=== PATIENT | male | born 1965 | race Caucasian/White ===

== ENCOUNTER 2019-01-16 00:50 | Inpatient (IN) | payer OTHER ==
[2019-01-16] VITALS (7 sets, daily range): BP systolic 111–156; BP diastolic 68–104
[~2019-01-16] VITALS: Ht 185.4 cm; Wt 93.5 kg
--- NOTE | 2019-01-16 00:55 | NUR ---
PT BIBRA complaining of SOB, pt saturating in 80s. Pt signed out AMA on Sun from [facility] after being diagnosed with PNA. Pt is tachypnic and has dyspnea. Pt speaking in full sentences. Pt put on the monitor and pulse ox. Er MD at bedside.
[2019-01-16] MEDS ORDERED: IPRATROPIUM NEB FS 0.5 MG/2.5 ML AMPUL.NEB ONE (00:59)
[2019-01-16] MEDS ORDERED: ALBUTEROL FS 2.5 MG/3 ML VIAL.NEB ONE (00:59)
[2019-01-16] MEDS ORDERED: ALBUTEROL FS 2.5 MG/3 ML VIAL.NEB CONTNEB ONE (01:00)
[2019-01-16] MEDS ORDERED: AZTREONAM 1 G in IV NS 0.9% 100 ML IV ONE (01:00)
[2019-01-16] MEDS ORDERED: LEVOFLOXACIN 750 MG /D5W 150ML 150 ML IV ONE ×2 (01:00→02:32)
[2019-01-16] MEDS ORDERED: IPRATROPIUM NEB FS 0.5 MG/2.5 ML AMPUL.NEB NEB ONE (01:00)
--- NOTE | 2019-01-16 01:00 | NUR ---
Sagger Soak at bedside for lab draw. Labs sent.
--- NOTE | 2019-01-16 01:10 | NUR ---
XRAY AT BEDSIDE.
[2019-01-16 01:13] LABS: BASOPHILS # (AUTO) 0.1 /CMM (0.0-0.2); BASOPHILS % (AUTO) 0.3 % (0.0-2.0); EOSINOPHILS % (AUTO) 0.6 % (0.0-6.0); HEMATOCRIT 39 % (39-51); HEMOGLOBIN 13.3 g/dL (13.5-17.5); LYMPHOCYTES # (AUTO) 2.2 /CMM (0.8-4.8); LYMPHOCYTES % (AUTO) 7.3 % (20.0-44.0); MEAN CORPUSCULAR HGB CONC 34 g/dl (31.0-36.0); MEAN CORPUSCULAR VOLUME 94 fL (80-96); MONOCYTES # (AUTO) 3.8 /CMM (0.1-1.30); MONOCYTES % (AUTO) 12.3 % (2.0-12.0); NEUTROPHILS # (AUTO) 24.5 /CMM (1.8-8.9); NEUTROPHILS % (AUTO) 79.5 % (43.0-81.0); PLATELET COUNT (AUTO) 770 /CMM (150-450); RED BLOOD CELL COUNT(AUTO) 4.15 MIL/uL (4.5-6.0)
[2019-01-16] MEDS ORDERED: AZTREONAM 1 G VIAL ONE ×2 (01:13→05:26)
[2019-01-16 01:19] LABS: WHITE BLOOD COUNT (AUTO) 30.8 K/uL (4.3-11.0)
[2019-01-16 01:22] LABS: CALCIUM, SERUM 8.3 mg/dL (8.5-10.1); CARBON DIOXIDE 30 mmol/L (21-32); CHLORIDE 100 mmol/L (98-107); CREATININE 0.8 mg/dL (0.6-1.3); GLUCOSE 114 mg/dL (74-106); POTASSIUM 3.4 mmol/L (3.5-5.1); SODIUM SERUM 136 mmol/L (136-145); UREA NITROGEN, BLOOD 13 mg/dL (7-18)
[2019-01-16 01:30] LABS: MONOCYTES % (MANUAL) 11 % (0-11.0)
[2019-01-16 01:31] LABS: EOSINOPHILS % (MANUAL) 1 % (0-4); LYMPHOCYTES % (MANUAL) 7 % (16-48)
[2019-01-16 01:37] LABS: B-TYPE NATRIURETIC PEPTIDE 370 PG/ML (0-125)
[2019-01-16] MEDS ORDERED: ONDANSETRON HCL/PF 4 MG/2 ML VIAL IVP PRN (02:00)
[2019-01-16] MEDS ORDERED: MAG HYDROX/AL HYDROX/SIMETH 30 ML UDC PO PRN (02:00)
[2019-01-16] MEDS ORDERED: ACETAMINOPHEN 325 MG TABLET PO PRN (02:00)
[2019-01-16] MEDS ORDERED: MAGNESIUM HYDROXIDE 30 ML UDC PO PRN (02:00)
--- NOTE | 2019-01-16 02:29 | NUR ---
Pt being monitored, pulse ox 96% on 2LPM via n/c. Pt tachycardic. ER aware.
[2019-01-16 02:54] LABS: NEUTROPHILS % (MANUAL) 81 (42-76)
--- NOTE | 2019-01-16 02:57 | NUR ---
Report given to RHIANNA Ceballos RN for BELLE.
--- NOTE | 2019-01-16 03:30 | NUR ---
CROCLINICAL BIOCHEMICAL GENETICIST NOTES Patient came to unit via gurney, alert, oriented x 4. On O2 at 4LPM via NC. Patient reports SOB on exertion. Patient able to walk from [facility] to bed, knee brace noted on R leg. Tele monitor in place, sinus tachy 115. No complaints of pain as of this time. Peripheral IV on LFA g#20 infusing at 75mL/hr. Skin assessment done; bruise on R and L arm noted. As per patient, it is from IV insertion when he was in [facility]. Old surgical scar noted on the L upper arm and bilateral lower extremity noted. Pictures taken and attached to chart. Oriented to use of call stockton, placed within easy reach. Bed in low, locked position. Will continue to monitor accordingly.
[2019-01-16] MEDS: IV NS 0.9% 1,000 ML IV PRN ×2 (04:13→16:17)
[2019-01-16] MEDS: HYDROCODONE/APAP 5/325MG 1 EACH TABLET PO PRN ×4 (04:56→18:44)
[2019-01-16] MEDS: AZTREONAM 1 G in IV NS 0.9% 100 ML IV SCH ×3 (05:50→21:16)
--- NOTE | 2019-01-16 05:50 | NUR ---
BIOLOGICAL INSPECTOR NOTES Called pharmacy to clarify azactam 1g IV which was given at the ED at 01:25hrs to give it at 05:00 according to schedule. Pharmacist Moris said to give it as scheduled.
--- NOTE | 2019-01-16 06:50 | NUR ---
HOUSEFELLOW CLOSING NOTES Patient still sleeping in bed, easily arousable. Breathing even and unlabored. Not in any distress. No complaints as of this time. Peripheral IV on LFA g#20 infusing at 75mL/hr. On O2 at 2LPM via NC saturating well. Tele monitor in place, sinus tachy 108. All needs attended to. All due medications given as ordered. Will endorse continuity of care to oncoming RN.
[2019-01-16] MEDS ORDERED: POTASSIUM CHLORIDE 20 MEQ TAB.PRT.SR PO SCH ×2 (10:00→12:30)
--- NOTE | 2019-01-16 11:20 | NUR ---
TELE/RN NOTE THE PATIENT COMPLAINS OF CHEST PAIN 5/10 RADIATING TO UPPER BACK AND STATES NECK FEELS NUMB. STAT ECG ORDER.
--- NOTE | 2019-01-16 12:19 | NUR ---
MS/RN NOTE POTASSIUM DUE AT 1000 NOT ADMINISTERED DUE NOT ABLE TO PULL OUT THE MEDICATION AFTER 1000. PHARMACY IS MADE AWARE.
[2019-01-16] MEDS: ALBUTEROL FS 2.5 MG/0.5 ML VIAL.NEB NEB SCH ×3 (15:49→23:54)
[2019-01-16] MEDS: IPRATROPIUM NEB FS 0.5 MG/2.5 ML AMPUL.NEB NEB SCH ×3 (15:49→23:54)
[2019-01-16] MEDS: KETOROLAC TROMETHAMINE INJ 30 MG/ML VIAL IV PRN (16:11)
--- NOTE | 2019-01-16 19:04 | NUR ---
MS/RN NOTE THE PATIENT ALERT AND ORIENTED X4. PATIENT IS RECEIVING OXYGEN 3L/MIN VIA NC AND SATURATION IS AT 94%. DENIES SOB. DENIES PAIN AT THIS TIME. LFA G 20 PATENT AND NORMAL SALINE INFUSING AT 75ML/HR AND NO S/S INFILTRATION NOTED. GOOD AND GENTLE SKIN CARE PROVIDED. BED LOW AND LOCKED. SIDE RAILS UP X2. CALL LIGHT WITHIN REACH. WILL ENDORSE TO HEAT AND FROST INSULATOR.
--- NOTE | 2019-01-16 19:30 | NUR ---
RN Notes Received patient asleep, on high fowlers position, with O2 inhalation at 3LPM via nasal cannula and tolerated well. No signs of distress and discomfort noted. Breathing regular and unlabored. IV access on left forearm patent and intact with ongoing IVF infusing well. Safety measures and fall precaution observed with call light within reach. Will continue to monitor patient.
[2019-01-17] MEDS: LEVOFLOXACIN 750 MG /D5W 150ML 750 MG in PREMIX 1 EA IV SCH (01:58)
[2019-01-17] MEDS: HYDROCODONE/APAP 5/325MG 1 EACH TABLET PO PRN ×3 (01:59→18:38)
--- NOTE | 2019-01-17 01:59 | NUR ---
RN Notes Patient complains of pain on her upper chest especially when coughing. Garfield 5/325 mg tab given PO and tolerated well.
[2019-01-17] MEDS: IPRATROPIUM NEB FS 0.5 MG/2.5 ML AMPUL.NEB NEB SCH ×6 (03:55→22:56)
[2019-01-17] MEDS: ALBUTEROL FS 2.5 MG/0.5 ML VIAL.NEB NEB SCH ×6 (03:56→22:56)
[2019-01-17] MEDS: AZTREONAM 1 G in IV NS 0.9% 100 ML IV SCH ×3 (04:56→20:34)
--- NOTE | 2019-01-17 05:31 | NUR ---
RN Notes Patient slept well overnight, vital signs stable, afebrile. Current diet tolerated well, denies nausea and vomiting. Pt complains of pain in the upper chest when coughing. Denies SOB, breathing regular and unlabored. Voiding well with tea colored urine. Ambulatory with steady gait. All needs attended. Will continue to monitor patient.
[2019-01-17 06:42] LABS: BASOPHILS # (AUTO) 0.2 /CMM (0.0-0.2); BASOPHILS % (AUTO) 0.6 % (0.0-2.0); EOSINOPHILS % (AUTO) 0.2 % (0.0-6.0); HEMATOCRIT 38 % (39-51); HEMOGLOBIN 12.8 g/dL (13.5-17.5); LYMPHOCYTES # (AUTO) 1.4 /CMM (0.8-4.8); LYMPHOCYTES % (AUTO) 4.8 % (20.0-44.0); MEAN CORPUSCULAR HGB CONC 34 g/dl (31.0-36.0); MEAN CORPUSCULAR VOLUME 94 fL (80-96); MONOCYTES % (AUTO) 13.5 % (2.0-12.0); NEUTROPHILS # (AUTO) 23.9 /CMM (1.8-8.9); NEUTROPHILS % (AUTO) 80.9 % (43.0-81.0); PLATELET COUNT (AUTO) 664 /CMM (150-450); RED BLOOD CELL COUNT(AUTO) 4.05 MIL/uL (4.5-6.0); WHITE BLOOD COUNT (AUTO) 29.5 K/uL (4.3-11.0)
[2019-01-17 06:56] LABS: CALCIUM, SERUM 8.3 mg/dL (8.5-10.1); CREATININE 0.8 mg/dL (0.6-1.3); PHOSPHORUS 4.2 mg/dL (2.5-4.9)
--- NOTE | 2019-01-17 07:15 | NUR ---
MS/RN NOTE THE PATIENT ALERT AND ORIENTED X4. DENIES PAIN AT THIS TIME. RECEIVING OXYGEN 3L/MIN VIA NASAL CANNULA AND DENIES SOB. LFA G 20 PATENT AND NORMAL SALINE INFUSING AT 75ML/HR. NO S/S INFILTRATION NOTED. BED LOW AND LOCKED. SIDE RAILS UP X2. CALL LIGHT WITHIN REACH. WILL CONTINUE TO MONITOR.
[2019-01-17] MEDS: KETOROLAC TROMETHAMINE INJ 30 MG/ML VIAL IV PRN (07:57)
[2019-01-17 08:00] VITALS: BP 142/91
[2019-01-17] MEDS: IV NS 0.9% 1,000 ML IV PRN (10:11)
[2019-01-17] MEDS: MENTHOL/CETYLPYRD (CEPACOL) 1 LOZ LOZENGE PO PRN ×2 (13:11→20:33)
[2019-01-17 14:30] VITALS: BP 145/88
[2019-01-17 16:00] VITALS: BP 179/103
--- NOTE | 2019-01-17 16:23 | NUR ---
MS/RN NOTE DR TOBIAS IS MADE AWARE OF PATIENT HAVING TEA COLORED URINE. NEW ORDER FOR UA AND URINE CULTURE IS OBTAINED. THE ORDER IS READ BACK, VERIFIED. NOTED AND CARRIED OUT.
--- NOTE | 2019-01-17 18:11 | NUR ---
MS/RN NOTE THE PATIENT ALERT AND ORIENTED X4. RECEIVING OXYGEN AT 3L/MIN VIA NASAL CANNULA AND SATURATION IS AT 96%. DENIES SOB. RESPIRATION REGULAR AND UNLABORED. DENIES PAIN AT THIS TIME. LFA G 20 PATENT AND NORMAL SALINE INFUSING AT 75ML/HR. NO S/S INFILTRATION NOTED. BED LOW AND LOCKED. SIDE RAILS UP S3. CALL LIGHT WITHIN REACH. WILL CONTINUE TO MONITOR.
[2019-01-17 18:17] VITALS: BP 166/101
--- NOTE | 2019-01-17 18:20 | NUR ---
MS/RN NOTE DR TOBIAS IS MADE AWARE OF PATIENT BLOOD PRESSURE OF 161/101 AND PULSE 125. NEW ORDER FOR HYDRALAZINE 25 MG PO Q6H PRN IS OBTAINED. READ BACK, VERFIED. NOTED AND CARRIED OUT.
[2019-01-17] MEDS: hydrALAZINE HCL 25 MG TABLET PO PRN (18:38)
[2019-01-17 20:00] VITALS: BP 148/84
--- NOTE | 2019-01-17 20:00 | NUR ---
MS RN NOTES RECEIVED PATIENT ASLEEP IN BED. NO DISTRESS NOTED. CALL LIGHT WITHIN REACH. NO C/O PAIN DISCOMFORT. BP 148/84 HR 140. NO C/O OF DIZZINESS, MONTOYA, NV NOTED. PERIPHERAL LINE INTACT AND PATENT. BED IN LOW LOCK SETTING. ROOM FREE OF CLUTTER AND BELONGINGS KEPT NEAR BEDSIDE. WILL CONTINUE TO MONITOR.
[2019-01-18] MEDS: LEVOFLOXACIN 750 MG /D5W 150ML 750 MG in PREMIX 1 EA IV SCH (01:02)
[2019-01-18] MEDS: HYDROCODONE/APAP 5/325MG 1 EACH TABLET PO PRN ×2 (01:28→08:03)
[2019-01-18] MEDS: ALBUTEROL FS 2.5 MG/0.5 ML VIAL.NEB NEB SCH ×2 (03:29→08:21)
[2019-01-18] MEDS: IPRATROPIUM NEB FS 0.5 MG/2.5 ML AMPUL.NEB NEB SCH ×5 (03:29→20:18)
[2019-01-18] MEDS: IV NS 0.9% 1,000 ML IV PRN ×2 (03:33→21:38)
[2019-01-18] MEDS: KETOROLAC TROMETHAMINE INJ 30 MG/ML VIAL IV PRN ×3 (03:51→21:15)
[2019-01-18] MEDS: AZTREONAM 1 G in IV NS 0.9% 100 ML IV SCH ×2 (05:47→13:29)
[2019-01-18 06:34] LABS: APPEARANCE,URINE SL CLOUDY (CLEAR); BILIRUBIN,URINE 1+ (NEGATIVE); BLOOD, URINE 3+ Ery/uL (NEGATIVE); COLOR,URINE DARK YELLO (YELLOW); KETONES,URINE NEGATIVE (NEGATIVE); LEUKOCYTE ESTERASE ,URINE NEGATIVE (NEGATIVE); NITRITE, URINE NEGATIVE (NEGATIVE); PH,URINE 6.5 (5.0-8.0); PROTEIN,URINE 2+ mg/dl (NEGATIVE); UGLUCOSE NEGATIVE (NEGATIVE)
--- NOTE | 2019-01-18 06:47 | NUR ---
MS RN NOTES PATIENT ASLEEP IN BED WITH NO DISTRESS NOTED. CALL LIGHT WITHIN REACH. ALL DUE MEDS GIVEN ORDERED WITH NO ASE NOTED. PERIPHERAL LINE INTACT AND PATENT. NO C/O PAIN OR DISCOMFORT. BED IN LOW LOCK SETTING. ROOM FREE OF CLUTTER AND BELONGINGS KEPT NEAR BEDSIDE. WILL CONTINUE TO MONITOR.
[2019-01-18 07:04] LABS: BACTERIA,URINE None seen /HPF (None Seen); RBC,URINE TOO NUMEROUS TO COUN /HPF (0-2); SQUAMOUS EPITHELIAL CELL,UR Few /HPF (None Seen); WBC,URINE 0-2 /HPF (0-3)
[2019-01-18 07:21] LABS: BASOPHILS # (AUTO) 0.1 /CMM (0.0-0.2); BASOPHILS % (AUTO) 0.2 % (0.0-2.0); EOSINOPHILS % (AUTO) 0.5 % (0.0-6.0); HEMATOCRIT 37 % (39-51); HEMOGLOBIN 12.2 g/dL (13.5-17.5); LYMPHOCYTES # (AUTO) 1.2 /CMM (0.8-4.8); LYMPHOCYTES % (AUTO) 5.5 % (20.0-44.0); MEAN CORPUSCULAR HGB CONC 33 g/dl (31.0-36.0); MEAN CORPUSCULAR VOLUME 95 fL (80-96); MONOCYTES # (AUTO) 3.9 /CMM (0.1-1.30); MONOCYTES % (AUTO) 17.9 % (2.0-12.0); NEUTROPHILS # (AUTO) 16.7 /CMM (1.8-8.9); NEUTROPHILS % (AUTO) 75.9 % (43.0-81.0); PLATELET COUNT (AUTO) 634 /CMM (150-450); RED BLOOD CELL COUNT(AUTO) 3.89 MIL/uL (4.5-6.0); WHITE BLOOD COUNT (AUTO) 22.1 K/uL (4.3-11.0)
[2019-01-18 07:33] LABS: CALCIUM, SERUM 8.3 mg/dL (8.5-10.1); CREATININE 0.8 mg/dL (0.6-1.3); MAGNESIUM 1.6 mg/dL (1.8-2.4); PHOSPHORUS 4.5 mg/dL (2.5-4.9); POTASSIUM 3.9 mmol/L (3.5-5.1)
--- NOTE | 2019-01-18 07:36 | NUR ---
MS/RN OPENING NOTE PATIENT IN BED IN STABLE CONDITION. A/O X 4. NO SIGNS OF ACUTE DISTRESS. COMPLAIN OF PAIN RATED 5/10 AROUND THROAT AREA DUE TO COUGHING PER PATIENT. WILL ADMINISTER PAIN MEDS NEEDED AND PER ORDER. ALL NEEDS ATTENDED TO. CALL LIGHT WITHIN REACH. WILL CONTINUE TO MONITOR TO ENSURE SAFETY.
[2019-01-18 08:00] VITALS: BP 175/100
[2019-01-18] MEDS: hydrALAZINE HCL 25 MG TABLET PO PRN (08:02)
[2019-01-18] MEDS: MENTHOL/CETYLPYRD (CEPACOL) 1 LOZ LOZENGE PO PRN ×2 (08:05→14:38)
[2019-01-18] MEDS: METOPROLOL TARTRATE 25 MG TABLET PO SCH ×2 (09:30→20:18)
--- NOTE | 2019-01-18 09:45 | NUR ---
MS/RN 930AM METOPROLOL 25MG HELD SECONDARY TO PATIENT BP S/P HYDRALAZINE 25MG PO NOTED 132/74, HR 108. DR TOBIAS AT BEDSIDE NOTIFIED AND PER DR TOBIAS HOLD OFF METOPROLOL FOR RIGHT NOW. PATIENT AWARE.
[2019-01-18] MEDS ORDERED: Magnesium 1GM/D5W 100ML PREMIX 100 ML IV SCH (13:30)
[2019-01-18] MEDS ORDERED: CT SWABBABLE VALVE TRANS SET 1 EA INFUS.SET MC ONE (13:51)
[2019-01-18] MEDS ORDERED: IOHEXOL-350 100 ML VIAL IV ONE (13:51)
[2019-01-18] MEDS ORDERED: IV NS 0.9% 250 ML IV ONE (13:51)
[2019-01-18] MEDS ORDERED: [UNRECOGNIZED DRUG - OTHER] MC ONE (14:25)
[2019-01-18] MEDS: ALBUTEROL FS 2.5 MG/3 ML VIAL.NEB NEB SCH ×2 (14:29→20:18)
[2019-01-18] MEDS: Magnesium 1GM/D5W 100ML PREMIX 100 ML IV SCH ×2 (15:59→17:06)
[2019-01-18 16:00] VITALS: BP 145/96
[2019-01-18] MEDS ORDERED: [UNRECOGNIZED DRUG - OTHER] IV SCH (16:00)
[2019-01-18] MEDS ORDERED: VANCOMYCIN 1.25 GM in IV D5W 250 ML IV SCH (16:00)
[2019-01-18] MEDS ORDERED: VANCOMYCIN IV SCH (16:00)
--- NOTE | 2019-01-18 18:17 | NUR ---
MS/RN CLOSING NOTE PATIENT IN BED IN STABLE CONDITION. A/O X 4. NO SIGNS OF ACUTE DISTRESS. NO COMPLAIN OF PAIN OR DISCOMFORT. ON CONTACT ISOLATION FOR MRSA SPUTUM POSITIVE. ALL NEEDS ATTENDED TO. CALL LIGHT WITHIN REACH. WILL ENDORSE TO NEXT SHIFT FOR CONTINUITY OF CARE.
[2019-01-18 20:00] VITALS: BP 157/86
--- NOTE | 2019-01-18 20:00 | NUR ---
MS RN NOTES RECEIVED PATIENT AWAKE IN BED WITH NO DISTRESS NOTED. PATIENT BREATHING EASILY WITH NO SOB NOTES. CALL LIGHT WITHIN REACH. NO C/O PAIN OR DISCOMFORT. PERIPHERAL LINE INTACT AND PATENT. BED IN LOW LOCK SETTING. ALL BELONGINGS KEPT NEAR BEDSIDE. WILL CONTINUE TO MONITOR.
[2019-01-19] MEDS: TEMAZEPAM 15 MG CAPSULE PO PRN (00:10)
[2019-01-19] MEDS: IPRATROPIUM NEB FS 0.5 MG/2.5 ML AMPUL.NEB NEB SCH ×7 (00:18→23:36)
[2019-01-19] MEDS: ALBUTEROL FS 2.5 MG/3 ML VIAL.NEB NEB SCH ×6 (00:56→19:51)
[2019-01-19] MEDS: LEVOFLOXACIN 750 MG /D5W 150ML 750 MG in PREMIX 1 EA IV SCH (02:07)
[2019-01-19] MEDS ORDERED: VANCOMYCIN IV SCH (04:00)
[2019-01-19] MEDS ORDERED: [UNRECOGNIZED DRUG - OTHER] IV SCH (04:00)
[2019-01-19] MEDS: MENTHOL/CETYLPYRD (CEPACOL) 1 LOZ LOZENGE PO PRN ×2 (05:57→19:59)
--- NOTE | 2019-01-19 06:47 | NUR ---
MS RN NOTES PATIENT ASLEEP IN BED. NO DISTRESS NOTED. CALL LIGHT WITHIN REACH. ALL DUE MEDS GIVEN ORDERED WITH NO ASE NOTED. NO FURTHER C/O PAIN OR DISCOMFORT. PERIPHERAL LINE INTACT AND PATENT. BED IN LOW LOCK SETTING. ALL BELONGINGS KEPT NEAR BEDSIDE. WILL ENDORSE TO ONCOMING SHIFT.
[2019-01-19 07:44] LABS: BASOPHILS # (AUTO) 0.1 /CMM (0.0-0.2); BASOPHILS % (AUTO) 0.5 % (0.0-2.0); EOSINOPHILS % (AUTO) 0.8 % (0.0-6.0); HEMATOCRIT 35 % (39-51); HEMOGLOBIN 11.7 g/dL (13.5-17.5); LYMPHOCYTES # (AUTO) 0.9 /CMM (0.8-4.8); LYMPHOCYTES % (AUTO) 4.9 % (20.0-44.0); MEAN CORPUSCULAR HGB CONC 33 g/dl (31.0-36.0); MEAN CORPUSCULAR VOLUME 95 fL (80-96); MONOCYTES % (AUTO) 15.5 % (2.0-12.0); NEUTROPHILS % (AUTO) 78.3 % (43.0-81.0); PLATELET COUNT (AUTO) 642 /CMM (150-450); WHITE BLOOD COUNT (AUTO) 19.1 K/uL (4.3-11.0)
[2019-01-19 07:56] LABS: CALCIUM, SERUM 7.9 mg/dL (8.5-10.1); CREATININE 0.8 mg/dL (0.6-1.3); MAGNESIUM 1.9 mg/dL (1.8-2.4); PHOSPHORUS 3.2 mg/dL (2.5-4.9); POTASSIUM 3.7 mmol/L (3.5-5.1)
[2019-01-19 07:58] VITALS: BP 164/100
[2019-01-19 08:00] VITALS: BP 164/100
--- NOTE | 2019-01-19 08:00 | NUR ---
RN NOTES RECEIVED PATIENT IN THE BED A/O X3, EASILY GET IRRITABLE, ANXIOUS BECAUSE OF PAIN UPPER CHEST WHEN COUGHING, AND HARD TO BREATH. PATIENT ON O2- 4L NC, SCHEDULED MEDICATION ADMINISTERED. PATIENT COMPLAINING OF CHEST PAIN 6/10 PER PAIN SCALE. PATIENT USING URINAL. INFUSING NS AT LEFT FA 75 ML/HR INTACT. PATIENT TRYING TO SLEEP. PATIENT HAS MRSA OF SPUTUM, NEEDS ATTENDED AND ANTICIPATED, CALL LIGHT WITHIN TO REACH. SAFETY PRECAUTION MAINTAINED ALL THE TIME.
--- NOTE | 2019-01-19 08:19 | NUR ---
albuterol not given due HR > 120 bpm Addendum: 01/19/19 at 0819 by WALLACE PLATT RT Amended: Links added.
[2019-01-19] MEDS: METOPROLOL TARTRATE 25 MG TABLET PO SCH ×2 (09:02→21:18)
[2019-01-19] MEDS: HYDROCODONE/APAP 5/325MG 1 EACH TABLET PO PRN ×3 (09:04→20:00)
--- NOTE | 2019-01-19 09:04 | NUR ---
RN NOTES ADMINISTERED NARCO 5/325 MG PO PRN FOR UPPER CHEST PAIN 05/05 PER PATIENT REQUEST, V/S TAKEN BP 164/100, P-100, CONTINUED MONITORING.
[2019-01-19] MEDS ORDERED: MEROPENEM 1 G in IV NS 0.9% 100 ML IV SCH ×2 (10:00→21:00)
[2019-01-19] MEDS ORDERED: MEROPENEM 1 G in IV NS 0.9% 100 ML IV ONE (12:00)
[2019-01-19] MEDS: IV NS 0.9% 1,000 ML IV PRN (12:28)
--- NOTE | 2019-01-19 13:15 | NUR ---
RN NOTES ADMINISTERED NARCO 5/325 MG PO PRN FOR ACUTE UPPER CHEST PAIN 05/05 PER PATIENT REQUEST, V/S TAKEN BP-142/89, P-96. CONTINUED MONITORING.
[2019-01-19 13:28] VITALS: BP 142/89
[2019-01-19 16:00] VITALS: BP 144/87
--- NOTE | 2019-01-19 18:30 | NUR ---
RN NOTES PATIENT STABLE, NO ACUTE RESPIRATORY DISTRESS, V/S STABLE, PATIENT USING URINAL, INFUSING NS AT 75 ML IN LEFT FA INTACT. CALL LIGHT WITHIN TO REACH, SAFETY PRECAUTION MAINTAINED ALL THE TIME.
--- NOTE | 2019-01-19 19:30 | NUR ---
RECEIVED PATIENT IN BED AWAKE, AO X 3, ABLE TO MAKE NEEDS KNOWN. NO ACUTE DISTRESS NOTED. MONITORED FOR PAIN. IV SITES PATENT, INTACT; FLUSHED. SAFETY REMINDERS GIVEN. CONTACT ISOLATION FOR MRSA IN SPUTUM MAINTAINED. ON LOW BED WITH BILATERAL UPPER SIDE RAILS UP. CALL BEVERLY WITHIN EASY REACH. WILL CONTINUE TO MONITOR.
[2019-01-19 20:00] VITALS: BP 163/90
[2019-01-19] MEDS: CLINDAMYCIN 900 MG in IV D5W 50 ML IV SCH (21:19)
[2019-01-20] MEDS: TEMAZEPAM 15 MG CAPSULE PO PRN (01:14)
[2019-01-20] MEDS: ALBUTEROL FS 2.5 MG/3 ML VIAL.NEB NEB SCH ×4 (01:15→20:31)
[2019-01-20] MEDS: HYDROCODONE/APAP 5/325MG 1 EACH TABLET PO PRN ×3 (01:54→20:38)
[2019-01-20] MEDS: IPRATROPIUM NEB FS 0.5 MG/2.5 ML AMPUL.NEB NEB SCH ×6 (03:14→23:06)
[2019-01-20 03:22] LABS: BASOPHILS # (AUTO) 0.1 /CMM (0.0-0.2); BASOPHILS % (AUTO) 0.6 % (0.0-2.0); HEMATOCRIT 36 % (39-51); LYMPHOCYTES # (AUTO) 1.1 /CMM (0.8-4.8); LYMPHOCYTES % (AUTO) 5.7 % (20.0-44.0); MEAN CORPUSCULAR HGB CONC 34 g/dl (31.0-36.0); MEAN CORPUSCULAR VOLUME 95 fL (80-96); MONOCYTES # (AUTO) 2.5 /CMM (0.1-1.30); MONOCYTES % (AUTO) 13.8 % (2.0-12.0); NEUTROPHILS # (AUTO) 14.5 /CMM (1.8-8.9); NEUTROPHILS % (AUTO) 78.9 % (43.0-81.0); PLATELET COUNT (AUTO) 671 /CMM (150-450); RED BLOOD CELL COUNT(AUTO) 3.77 MIL/uL (4.5-6.0); WHITE BLOOD COUNT (AUTO) 18.4 K/uL (4.3-11.0)
[2019-01-20 03:35] LABS: CREATININE 0.7 mg/dL (0.6-1.3); MAGNESIUM 1.8 mg/dL (1.8-2.4); PHOSPHORUS 3.4 mg/dL (2.5-4.9); POTASSIUM 3.7 mmol/L (3.5-5.1)
[2019-01-20] MEDS: CLINDAMYCIN 900 MG in IV D5W 50 ML IV SCH ×3 (05:17→20:43)
--- NOTE | 2019-01-20 06:00 | NUR ---
PATIENT ASLEEP, EASILY AROUSABLE. RESPIRATIONS EVEN. NO SIGNS OF PAIN NOTED. DUE MEDS GIVEN WITH NO ASE NOTED. IVF INFUSING ORDERED. NEEDS ATTENDED. SAFETY PRECAUTIONS AND COMFORT MEASURES IN PLACE. WILL GIVE REPORT TO DAY SHIFT FOR CONTINUITY OF CARE.
--- NOTE | 2019-01-20 07:20 | NUR ---
RN NOTES PATIENT ASLEEP, BUT EASILY AROUSABLE, BREATHING EVEN AND UNLABORED, NO SOB NOTED, IVF INFUSING AND TOLERATING WELL, NEEDS ATTENDED, CALL LIGHT WITHIN REACH, WILL CONTINUE TO MONITOR.
[2019-01-20] MEDS: IV NS 0.9% 1,000 ML IV PRN (07:22)
[2019-01-20 08:00] VITALS: BP 156/105
[2019-01-20] MEDS: METOPROLOL TARTRATE 25 MG TABLET PO SCH ×2 (08:18→20:41)
[2019-01-20] MEDS: RIFAMPIN 300 MG CAPSULE PO SCH (08:18)
[2019-01-20] MEDS: MENTHOL/CETYLPYRD (CEPACOL) 1 LOZ LOZENGE PO PRN ×4 (08:23→23:02)
[2019-01-20] MEDS ORDERED: KETOROLAC TROMETHAMINE INJ 30 MG/ML VIAL IV PRN (09:00)
[2019-01-20] MEDS ORDERED: VANCOMYCIN 1.5 GM in IV D5W 500 ML IV ONE (12:00)
[2019-01-20] MEDS ORDERED: FEE PK DOSING 1 MIN EA MC ONE (13:21)
[2019-01-20 16:00] VITALS: BP 141/101
[2019-01-20] MEDS: LACTOBACILLUS RHAMNOSUS GG 1 EACH CAP.SPRINK PO SCH (16:45)
--- NOTE | 2019-01-20 19:10 | NUR ---
MS RN OPENING NOTES Received patient in bed watching TV, alert, oriented x 4. Not in any distress. On O2 at 3LPM via NC. Peripheral IV on LFA infusing at 75mL/hr. IV access on RAC g18 intact and patent. Call stockton within reach. Bed in low, locked position. Will continue to monitor accordingly
--- NOTE | 2019-01-20 19:30 | NUR ---
RN NOTES PATIENT A/OX3, BREATHING EVEN AND UNLABORED, NO SOB NOTED, CURRENTLY ON ROUTINE BREATHING TREATMENT, IVF INFUSING AND TOLERATING WELL, ALL NEEDS ATTENDED AND MET, CALL LIGHT IWTHINR EACH, ENDORSED TO CORPORATION SECRETARY FOR BELLE.
[2019-01-20 20:45] VITALS: BP 145/92
[2019-01-21] MEDS: VANCOMYCIN 1.5 GM in IV D5W 500 ML IV SCH ×2 (00:08→13:11)
[2019-01-21] MEDS: TEMAZEPAM 15 MG CAPSULE PO PRN ×2 (00:08→20:34)
[2019-01-21] MEDS: ALBUTEROL FS 2.5 MG/3 ML VIAL.NEB NEB SCH ×4 (01:36→19:15)
[2019-01-21] MEDS: IPRATROPIUM NEB FS 0.5 MG/2.5 ML AMPUL.NEB NEB SCH ×6 (03:23→22:57)
[2019-01-21] MEDS: IV NS 0.9% 1,000 ML IV PRN ×2 (03:41→21:23)
[2019-01-21] MEDS: CLINDAMYCIN 900 MG in IV D5W 50 ML IV SCH ×3 (04:21→20:33)
[2019-01-21 06:10] LABS: BASOPHILS # (AUTO) 0.2 /CMM (0.0-0.2); BASOPHILS % (AUTO) 1.5 % (0.0-2.0); EOSINOPHILS % (AUTO) 1.7 % (0.0-6.0); HEMATOCRIT 36 % (39-51); HEMOGLOBIN 11.8 g/dL (13.5-17.5); LYMPHOCYTES # (AUTO) 1.2 /CMM (0.8-4.8); LYMPHOCYTES % (AUTO) 7.7 % (20.0-44.0); MEAN CORPUSCULAR HGB CONC 33 g/dl (31.0-36.0); MEAN CORPUSCULAR VOLUME 95 fL (80-96); MONOCYTES # (AUTO) 2.8 /CMM (0.1-1.30); MONOCYTES % (AUTO) 17.2 % (2.0-12.0); NEUTROPHILS # (AUTO) 11.5 /CMM (1.8-8.9); NEUTROPHILS % (AUTO) 71.9 % (43.0-81.0); PLATELET COUNT (AUTO) 716 /CMM (150-450); RED BLOOD CELL COUNT(AUTO) 3.82 MIL/uL (4.5-6.0)
[2019-01-21 06:47] LABS: CALCIUM, SERUM 8.3 mg/dL (8.5-10.1); CREATININE 0.7 mg/dL (0.6-1.3); MAGNESIUM 1.8 mg/dL (1.8-2.4); POTASSIUM 3.7 mmol/L (3.5-5.1)
--- NOTE | 2019-01-21 07:20 | NUR ---
RN CLOSING NOTES Patient resting in bed, alert, oriented x 4. Breathing even and unlabored. Not in any distress. No SOB noted, currently on routine brething treatment. Peripheral IV infusing at 75mL/hr. All needs attended to. All due medications given as ordered. Safety measures in place; call stockton within reach. Bed in low, locked position. Endorsed BELLE to oncoming RN
--- NOTE | 2019-01-21 07:56 | NUR ---
MS/RN OPENING NOTE PATIENT IN BED IN STABLE CONDITION. A/O X 4. NO SIGNS OF ACUTE DISTRESS. NO COMPLAIN OF PAIN OR DISCOMFORT. ALL NEEDS ATTENDED TO. CALL LIGHT WITHIN REACH. WILL CONTINUE TO MONITOR TO ENSURE SAFETY.
[2019-01-21 08:00] VITALS: BP 117/93
[2019-01-21] MEDS: LACTOBACILLUS RHAMNOSUS GG 1 EACH CAP.SPRINK PO SCH ×2 (08:22→16:58)
[2019-01-21] MEDS: METOPROLOL TARTRATE 25 MG TABLET PO SCH ×2 (08:22→20:33)
[2019-01-21] MEDS: RIFAMPIN 300 MG CAPSULE PO SCH (08:23)
[2019-01-21] MEDS: HYDROCODONE/APAP 5/325MG 1 EACH TABLET PO PRN ×2 (08:23→16:58)
[2019-01-21] MEDS: MENTHOL/CETYLPYRD (CEPACOL) 1 LOZ LOZENGE PO PRN ×3 (08:34→20:33)
[2019-01-21 16:00] VITALS: BP 138/83
--- NOTE | 2019-01-21 18:28 | NUR ---
MS/RN CLOSING NOTE PATIENT IN BED IN STABLE CONDITION. A/O X 4. NO SIGNS OF ACUTE DISTRESS. NO COMPLAIN OF PAIN OR DISCOMFORT. SPOKE WITH DR GRIMES AND MADE AWARE, THERE WAS NO ORDER FOR REPEAT CXR SINCE SUNDAY AFTER CT PULMO. ANGIO. PER DR GRIMES NO NEED. ALL NEEDS ATTENDED TO. CALL LIGHT WITHIN REACH. WILL ENDORSE TO NEXT SHIFT FOR CONTINUITY OF CARE.
--- NOTE | 2019-01-21 19:15 | NUR ---
RN NOTES RECEIVED PT IN BED. ALERT AND VERBALLY RESPONSIVE. ON 3L O2 VIA NC, TOLERATING WELL. NO SOB NOTED. NO C/O PAIN AT THIS TIME. WITH ONGOING IVF NS AT 75 ML/HR INFUSING WELL ON LFA G20 IV. RAC G18 IV INTACT. SAFETY MEASURES IN PLACED. CALL LIGHT WITHIN EASY REACH. WILL CONT TO MONITOR
[2019-01-21 20:00] VITALS: BP 149/93
[2019-01-21 20:57] VITALS: BP 149/93
[2019-01-21] MEDS: VANCOMYCIN 1.25 GM in IV D5W 500 ML IV SCH (21:22)
[2019-01-22] MEDS: ALBUTEROL FS 2.5 MG/3 ML VIAL.NEB NEB SCH ×4 (00:55→19:47)
[2019-01-22] MEDS: HYDROCODONE/APAP 5/325MG 1 EACH TABLET PO PRN (01:56)
[2019-01-22] MEDS: IPRATROPIUM NEB FS 0.5 MG/2.5 ML AMPUL.NEB NEB SCH ×5 (03:06→19:47)
[2019-01-22] MEDS: CLINDAMYCIN 900 MG in IV D5W 50 ML IV SCH ×3 (04:06→20:38)
[2019-01-22] MEDS: VANCOMYCIN 1.25 GM in IV D5W 500 ML IV SCH ×3 (04:52→21:33)
--- NOTE | 2019-01-22 06:56 | NUR ---
RN NOTES PT IN STABLE CONDITION. NO ACUTE CHANGES THROUGHOUT SHIFT. ALL NEEDS ANTICIPATED. IV LINES KEPT INTACT AND PATENT. WITH ONGOING IVF NS AT 75 ML/HR. SAFETY MEASURES OBSERVED AT ALL TIMES. ENDORSED TO AM SHIFT RN FOR BELLE
[2019-01-22 07:10] LABS: BASOPHILS # (AUTO) 0.1 /CMM (0.0-0.2); BASOPHILS % (AUTO) 0.6 % (0.0-2.0); EOSINOPHILS % (AUTO) 2.1 % (0.0-6.0); HEMATOCRIT 34 % (39-51); HEMOGLOBIN 11.8 g/dL (13.5-17.5); LYMPHOCYTES # (AUTO) 1.6 /CMM (0.8-4.8); LYMPHOCYTES % (AUTO) 11.3 % (20.0-44.0); MEAN CORPUSCULAR HGB CONC 34 g/dl (31.0-36.0); MEAN CORPUSCULAR VOLUME 94 fL (80-96); MONOCYTES % (AUTO) 14.4 % (2.0-12.0); NEUTROPHILS # (AUTO) 10.2 /CMM (1.8-8.9); NEUTROPHILS % (AUTO) 71.6 % (43.0-81.0); PLATELET COUNT (AUTO) 726 /CMM (150-450); RED BLOOD CELL COUNT(AUTO) 3.68 MIL/uL (4.5-6.0); WHITE BLOOD COUNT (AUTO) 14.2 K/uL (4.3-11.0)
--- NOTE | 2019-01-22 07:25 | NUR ---
MS/RN NOTE THE PATIENT IS RECEIVED IN BED. ALERT AND ORIENTED X4. PATIENT IS RECEIVING OXYGEN AT 3L/MIN AND DENIES SOB. RESPIRATION REGULAR AND UNLABORED. DENIES PAIN. THE PATIENT IN NO APPARENT DISTRESS. RAC G 18 PATENT AND SALINE LOCKED. LFA G 20 PATENT AND NORMAL SALINE INFUSING AT 75ML/HR. NO S/S INFILTRATION NOTED. BED LOW AND LOCKED. SIDE RAILS UP X3. CALL LIGHT WITHIN REACH. WILL CONTINUE TO MONITOR.
[2019-01-22 08:00] VITALS: BP 152/70
[2019-01-22 08:02] LABS: CREATININE 0.8 mg/dL (0.6-1.3); MAGNESIUM 1.7 mg/dL (1.8-2.4); PHOSPHORUS 3.3 mg/dL (2.5-4.9); POTASSIUM 3.3 mmol/L (3.5-5.1)
[2019-01-22] MEDS: LACTOBACILLUS RHAMNOSUS GG 1 EACH CAP.SPRINK PO SCH ×2 (09:00→16:51)
[2019-01-22] MEDS: RIFAMPIN 300 MG CAPSULE PO SCH (09:00)
[2019-01-22] MEDS: METOPROLOL TARTRATE 25 MG TABLET PO SCH ×2 (09:00→20:41)
[2019-01-22] MEDS ORDERED: POTASSIUM CHLORIDE 20 MEQ TAB.PRT.SR PO SCH (09:30)
[2019-01-22] MEDS: Magnesium 1GM/D5W 100ML PREMIX 100 ML IV SCH ×2 (10:00→11:00)
[2019-01-22 16:00] VITALS: BP 127/78
--- NOTE | 2019-01-22 17:00 | NUR ---
MS/RN VANCOMYCIN DUE AT 1300. NOT ADMINISTERED ON TIME DUE TO VANCOMYCIN TROUGH NOT BEING AVAILABLE UNTIL 1640.
--- NOTE | 2019-01-22 18:39 | NUR ---
MS/RN NOTE THE PATIENT ALERT AND ORIENTED X4. RESPIRATION REGULAR AND UNLABORED. RECEIVING OXYGEN AT 3L/MIN VIA NASAL CANNULA AND SATURATION IS AT 96%. DENIES SOB. DENIES PAIN. THE PATIENT IN NO APPARENT DISTRESS. LFA G 20 PATENT AND IV ANTIBIOTIC INFUSING PER ORDER. NO S/S INFILTRATION NOTED. BRUCE G 18 PATENT AND SALINE LOCKED. BED LOW AND LOCKED. SIDE RAILS UP X3. CALL LIGHT WITHIN REACH. WILL ENDORSE TO HOT MILL OPERATOR.
--- NOTE | 2019-01-22 19:45 | NUR ---
MS RN NOTES RECEIVED ON BED A/O X4,BREATHING NON LABORED,NOTED ON AND OFF COUGH,REQUESTING RT FOR BREATHING TREATMENT,WITH NS AT 75ML/HR RATE IN PROGRESS ON LFA VIA IV PUMP,SITE PATENT.ISOLATION PRECAUTION FOR MRSA NARES.CALL LIGHT IN REACH,NEEDS ANTICIPATED.
[2019-01-22 20:00] VITALS: BP 135/80
[2019-01-22] MEDS: MENTHOL/CETYLPYRD (CEPACOL) 1 LOZ LOZENGE PO PRN (20:41)
--- NOTE | 2019-01-22 20:41 | NUR ---
MS RN NOTES CEPACOL 1 UNIT GIVEN PER PATIENT REQUEST FOR SORE THROAT.
[2019-01-23] MEDS: IPRATROPIUM NEB FS 0.5 MG/2.5 ML AMPUL.NEB NEB SCH ×5 (00:02→15:30)
[2019-01-23] MEDS: MENTHOL/CETYLPYRD (CEPACOL) 1 LOZ LOZENGE PO PRN ×2 (00:06→08:47)
[2019-01-23] MEDS: TEMAZEPAM 15 MG CAPSULE PO PRN (00:11)
--- NOTE | 2019-01-23 00:11 | NUR ---
MS RN NOTES C/O INSOMNIA,RESTORIL 15MG PO GIVEN PER PATIENT REQUEST
[2019-01-23] MEDS: ALBUTEROL FS 2.5 MG/3 ML VIAL.NEB NEB SCH ×3 (01:29→13:46)
[2019-01-23] MEDS: CLINDAMYCIN 900 MG in IV D5W 50 ML IV SCH ×2 (04:34→12:00)
[2019-01-23] MEDS: VANCOMYCIN 1.25 GM in IV D5W 500 ML IV SCH ×2 (05:16→12:45)
--- NOTE | 2019-01-23 06:44 | NUR ---
MS RN NOTES KEPT ON ISOLATION PRECAUTION.IV ABX TOLERATED WELL.POSSIBLE /DC HOME WITH HOME HEALTH AND HOME O2.IN NO ACUTE DISTRESS.WILL ENDORSE TO DAY NURSE FOR BELLE.
[2019-01-23 07:06] LABS: BASOPHILS # (AUTO) 0.2 /CMM (0.0-0.2); EOSINOPHILS % (AUTO) 2.1 % (0.0-6.0); HEMATOCRIT 34 % (39-51); HEMOGLOBIN 11.8 g/dL (13.5-17.5); LYMPHOCYTES # (AUTO) 1.9 /CMM (0.8-4.8); LYMPHOCYTES % (AUTO) 11.6 % (20.0-44.0); MEAN CORPUSCULAR HGB CONC 34 g/dl (31.0-36.0); MEAN CORPUSCULAR VOLUME 93 fL (80-96); MONOCYTES # (AUTO) 2.3 /CMM (0.1-1.30); MONOCYTES % (AUTO) 14.2 % (2.0-12.0); NEUTROPHILS # (AUTO) 11.4 /CMM (1.8-8.9); NEUTROPHILS % (AUTO) 71.1 % (43.0-81.0); PLATELET COUNT (AUTO) 749 /CMM (150-450); RED BLOOD CELL COUNT(AUTO) 3.71 MIL/uL (4.5-6.0)
[2019-01-23 07:09] LABS: CALCIUM, SERUM 8.3 mg/dL (8.5-10.1); CREATININE 0.8 mg/dL (0.6-1.3); MAGNESIUM 1.9 mg/dL (1.8-2.4); PHOSPHORUS 3.7 mg/dL (2.5-4.9); POTASSIUM 3.6 mmol/L (3.5-5.1)
--- NOTE | 2019-01-23 07:31 | NUR ---
MS RN OPENING NOTES RECEIVED PT LAYING IN BED WITH HOB ELEVATED. PT IS AWAKE, ALERT, A/O X4. PT IS AFEBRILE. RESPIRATIONS ARE EVEN AND UNLABORED, NOT IN ANY ACUTE DISTRESS NOTED. PT DENIES ANY PAIN, SOB, N/V. IV ACCESS TO LFA INTACT, MIDLINE TO BRUCE W/ NO INFILTRATION NOTED. DRESSING KEPT CLEAN AND DRY. SAFETY MEASURE ARE IN PLACE. INSTRUCTED PT TO USE CALL LIGHT WHEN ASSISTANCE IS NEEDED, CALL LIGHT IS LEFT WITHIN REACH. WILL MONITOR THROUGHOUT SHIFT FOR CONTINUITY OF CARE.
[2019-01-23 08:00] VITALS: BP 138/85
[2019-01-23 08:40] VITALS: BP 138/85
[2019-01-23] MEDS: METOPROLOL TARTRATE 25 MG TABLET PO SCH (08:40)
[2019-01-23] MEDS: LACTOBACILLUS RHAMNOSUS GG 1 EACH CAP.SPRINK PO SCH (08:40)
[2019-01-23] MEDS: RIFAMPIN 300 MG CAPSULE PO SCH (08:40)
[2019-01-23] MEDS ORDERED: ALBUT2 NEB (11:25)
[2019-01-23] MEDS ORDERED: ACET325T53 PO (11:25)
[2019-01-23] MEDS ORDERED: RIFA300C2 PO (11:25)
[2019-01-23] MEDS ORDERED: METO25TA20 PO (11:25)
[2019-01-23] MEDS ORDERED: IPRA0.2S9 NEB (11:25)
[2019-01-23] MEDS ORDERED: LACT1CAP72 PO (11:25)
--- NOTE | 2019-01-23 13:21 | NUR ---
MS RN NOTES-- PT IS NOT IN ANY APPARENT DISTRESS NOTED. PT ABLE TO MAKE NEEDS KNOWN. NEEDS RENDERED. WILL CONTINUE TO MONITOR.
--- NOTE | 2019-01-23 16:00 | NUR ---
MS DEVELOPER PROVER MECHANICAL NOTE PT DISCHARGED TO HOME IN MEDICALLY STABLE CONDITION. PT IS A/O X4, AFEBRILE. RESPIRATIONS ARE EVEN AND UNLABORED, NOT IN ANY ACUTE DISTRESS NOTED. PUPILS ARE REACTIVE TO LIGHT, BILATERAL HAND PARK SUPERINTENDENT ARE STRONG AND EQUAL. PT DENIES ANY PAIN AT THIS TIME, NO C/O SOB, N/V. IV SITE TO LEFT WRIST REMOVED, APPLIED PRESSURE AND TOLERATED WELL. BRUEC MIDLINE KEPT INTACT, NO INFILTRATION NOTED. DRESSING KEPT CLEAN AND DRY. EXPLAINED DISCHARGE PAPERWORK TO PT W/ VERBAL AND WRITTEN AGREEMENT. ALL BELONGINGS SENT WITH PT AND LIST SIGNED. PT ACCOMPANIED TO LOBBY WITH 1 STAFF ASSIST. PT IS AMBULATORY AND STEADY. PT LEFT IN STABLE CONDITION VIA TAXI, SELF PAY.
== END 2019-01-23 16:04 | disposition home health service (06) | DRG 720 ==
LOC: ER 00:54 → TELE 03:08 → MED 10:37
PROVIDERS: ADMIT Student in an Organized Health Care Education/Training Program
PROC: 05H533Z Insertion of Infusion Device into Right Subclavian Vein, Percutaneous Approach (ICD-10-PCS; principal; 2019-01-22)
DX: A41.9 Sepsis, unspecified organism (principal); J85.0 Gangrene and necrosis of lung; J85.1 Abscess of lung with pneumonia; J96.91 Respiratory failure, unspecified with hypoxia; J15.9 Unspecified bacterial pneumonia; J90 Pleural effusion, not elsewhere classified; I10 Essential (primary) hypertension; D64.9 Anemia, unspecified; E83.42 Hypomagnesemia; F17.210 Nicotine dependence, cigarettes, uncomplicated; J44.0 Chronic obstructive pulmonary disease with (acute) lower respiratory infection; G47.00 Insomnia, unspecified; B95.62 Methicillin resistant Staphylococcus aureus infection as the cause of diseases classified elsewhere; R31.9 Hematuria, unspecified; E87.70 Fluid overload, unspecified; Z87.01 Personal history of pneumonia (recurrent)
CPT/HCPCS: 36415; 36569; 71045-TC; 80048-TC; 80202-TC; 81000-TC; 83605-TC; 83735-TC; 83880; 84100-TC; 84484-TC; 85025-TC; 87040-TC; 87070-TC; 87081-TC; 87086-TC; 87400; 93307-TC; 94799-TC; A4216; G0378; J1885; J1956; J2185; J3370; J3475; J3490; J7030; J7050; J7060; Q9967

== ENCOUNTER 2022-01-14 19:15 | Inpatient (IN) | payer OTHER ==
[~2022-01-14] VITALS: Ht 182.9 cm; Wt 105.7 kg
[~2022-01-14 19:15] MED LIST: ACET325T53 PO; ALBU8.5H8 IH; ALBUT2 NEB; AMLO-213 PO; ASPI-1169 PO; Cephalexin Monohydrate PO; FOLI0.4T6 PO; HYDR12.55 PO; IPRA0.2S9 NEB; LACT1CAP72 PO; METO25TA20 PO; MULT-447 PO; RIFA300C2 PO; SIMV10TA98 PO
--- NOTE | 2022-01-14 19:41 | NUR ---
JEMMA WAS SEEN AT URGENT CARE YESTERDAY FOR "ITCHY RASHES ON HANDS FEET ARMS AND LEGS" PER URGENT CARE "TO GO TO ER FOR ABNORMAL LABS". PATIENT ALERT AND ORIENTED X3. AMBULATORY WITH NON LABORED BREATHING.
--- NOTE | 2022-01-14 19:56 | NUR ---
CALLED LAB FOR COVID SWAB
--- NOTE | 2022-01-14 20:10 | NUR ---
LAB AT BEDSIDE
--- NOTE | 2022-01-14 20:11 | NUR ---
COVID SWAB SENT TO LAB
[2022-01-14 20:53] LABS: BASOPHILS # (AUTO) 0.1 K/uL (0.0-0.2); BASOPHILS % (AUTO) 0.7 % (0.0-2.0); EOSINOPHILS % (AUTO) 3.6 % (0.0-6.0); HEMATOCRIT 40 % (39-51); HEMOGLOBIN 13.6 g/dL (13.5-17.5); LYMPHOCYTES # (AUTO) 1.7 K/uL (0.8-4.8); LYMPHOCYTES % (AUTO) 13.2 % (20.0-44.0); MEAN CORPUSCULAR HGB CONC 34 g/dl (31.0-36.0); MEAN CORPUSCULAR VOLUME 97 fL (80-96); MONOCYTES # (AUTO) 1.7 K/uL (0.1-1.30); MONOCYTES % (AUTO) 13.4 % (2.0-12.0); NEUTROPHILS # (AUTO) 8.7 K/uL (1.8-8.9); NEUTROPHILS % (AUTO) 69.1 % (43.0-81.0); PLATELET COUNT (AUTO) 338 K/uL (150-450); RED BLOOD CELL COUNT(AUTO) 4.13 MIL/uL (4.5-6.0); WHITE BLOOD COUNT (AUTO) 12.6 K/uL (4.3-11.0)
[2022-01-14 21:15] LABS: ALBUMIN 2.6 g/dL (3.4-5.0); BILIRUBIN,TOTAL 0.6 mg/dL (0.2-1.0); CALCIUM, SERUM 8.1 mg/dL (8.5-10.1); CREATININE 2.6 mg/dL (0.6-1.3); POTASSIUM 3.9 mmol/L (3.5-5.1)
[2022-01-14] MEDS ORDERED: IV NS 0.9% 1,000 ML IV ONE (23:00)
[2022-01-14] MEDS ORDERED: IV NS 0.9% 1,000 ML IV PRN (23:30)
[2022-01-14] MEDS ORDERED: IPRATROPIUM NEB FS 0.5 MG/2.5 ML AMPUL.NEB NEB SCH (23:30)
[2022-01-14] MEDS ORDERED: MAGNESIUM HYDROXIDE 30 ML UDC PO PRN (23:30)
[2022-01-14] MEDS ORDERED: Z GUARD REMEDY 4 OZ OINT TP PRN (23:30)
[2022-01-14] MEDS ORDERED: ACETAMINOPHEN 325 MG TABLET PO PRN (23:30)
[2022-01-14] MEDS ORDERED: MAG HYDROX/AL HYDROX/SIMETH 30 ML UDC PO PRN (23:30)
[2022-01-14] MEDS ORDERED: ZOLPIDEM TARTRATE 5 MG TABLET PO PRN (23:30)
[2022-01-14] MEDS ORDERED: ONDANSETRON HCL/PF 4 MG/2 ML VIAL IVP PRN (23:30)
[2022-01-14 23:45] LABS: BILIRUBIN,URINE NEGATIVE (NEGATIVE); COLOR,URINE YELLOW (YELLOW); LEUKOCYTE ESTERASE ,URINE NEGATIVE (NEGATIVE); NITRITE, URINE NEGATIVE (NEGATIVE); PROTEIN,URINE >=300 mg/dl (NEGATIVE); UGLUCOSE NEGATIVE (NEGATIVE); UROBILINOGEN,URINE 0.2 EU/dL (0.2)
[2022-01-14] MEDS ORDERED: ALBUTEROL FS 2.5 MG/3 ML VIAL.NEB NEB PRN (23:45)
[2022-01-15] VITALS (10 sets, daily range): BP systolic 149–194; BP diastolic 85–120
--- NOTE | 2022-01-15 00:06 | NUR ---
316-1 PER RN CIS COORDINATOR.
--- NOTE | 2022-01-15 00:30 | NUR ---
REPORT GIVEN TO 3 DANNY RN
[2022-01-15 00:40] LABS: BACTERIA,URINE Few /HPF (None Seen); RBC,URINE 21-50 /HPF (0-2); SQUAMOUS EPITHELIAL CELL,UR Few /HPF (None Seen)
--- NOTE | 2022-01-15 01:14 | NUR ---
PT TRANSFERRED TO [facility] VIA HOSPITAL PROTOCOL. VSS
[2022-01-15] MEDS ORDERED: HYDROCODONE/APAP 10/325MG TABLET PO PRN (02:00)
--- NOTE | 2022-01-15 02:00 | NUR ---
MS MANUFACTURING WEAVER NOTES: 56 Y.O MALE ADMITTED TO MS @0104 FROM ER C/O ITCHY RASHES ON HANDS, FEET, ARMS, AND LEGS. PT IS ALERT AND ORIENTED X 4, AMBULATORY, ABLE TO MAKE NEEDS KNOWN TO STAFF. SAFETY PRECAUTIONS ESTABLISHED, BED IS LOCKED AND IN LOWEST POSITION, BED ALARM IS ON. WILL CONTINUE TO MONITOR PT FOR ANY CHANGES IN CURRENT CONDITION THROUGHOUT MY SHIFT.
[2022-01-15] MEDS: CLONIDINE HCL 0.1 MG TABLET PO PRN ×2 (02:25→10:31)
--- NOTE | 2022-01-15 02:35 | NUR ---
MS RN NOTES: PT C/O OF PAIN 08/05 ON BOTH FEET, PT WAS GIVEN NORCO 10 @ 0230. PT B/P NOTED AT 177/11 AND WAS GIVEN CLONIDINE 0.1 MG PER RESIDENTIAL COLLECTIONS PROVIDERS ORDERS. WILL RE-ASSESS THE EFFECTIVENESS OF MEDICATION GIVEN. WILL CONTINUE TO MONITOR.
[2022-01-15 06:42] LABS: BASOPHILS % (AUTO) 0.4 % (0.0-2.0); EOSINOPHILS % (AUTO) 4.6 % (0.0-6.0); HEMATOCRIT 37 % (39-51); HEMOGLOBIN 12.9 g/dL (13.5-17.5); LYMPHOCYTES # (AUTO) 1.4 K/uL (0.8-4.8); LYMPHOCYTES % (AUTO) 13.6 % (20.0-44.0); MEAN CORPUSCULAR HGB CONC 35 g/dl (31.0-36.0); MEAN CORPUSCULAR VOLUME 96 fL (80-96); MONOCYTES # (AUTO) 1.4 K/uL (0.1-1.30); MONOCYTES % (AUTO) 13.5 % (2.0-12.0); NEUTROPHILS # (AUTO) 7.2 K/uL (1.8-8.9); NEUTROPHILS % (AUTO) 67.9 % (43.0-81.0); PLATELET COUNT (AUTO) 282 K/uL (150-450); RED BLOOD CELL COUNT(AUTO) 3.86 MIL/uL (4.5-6.0); WHITE BLOOD COUNT (AUTO) 10.6 K/uL (4.3-11.0)
[2022-01-15] MEDS ORDERED: ALBUTEROL FS 2.5 MG/3 ML VIAL.NEB NEB PRN (07:26)
--- NOTE | 2022-01-15 07:30 | NUR ---
MS RN OPENING NOTES RECEIVED PATIENT IN BED, ASLEEP, EASILY AWAKEN BY VERBAL AND TACTILE STIMULI. IN NO ACUTE DISTRESS NOTED. ON RA TOLERATING WELL, NO S/SX OF RESPIRATORY DISTRESS NOTED. IV ACCESS ON RFA G#20, ONGOING NS 1LX90 CC/HR, INFUSING WELL, NO S/SX OF INFILTRATION NOTED. SAFETY PRECAUTIONS IN PLACE: BED ON LOWEST LOCKED POSITION, SIDE RAILS UP X 2, CALL LIGHT WITHIN EASY REACH. WILL CONTINUE TO MONITOR ACCORDINGLY.
--- NOTE | 2022-01-15 08:00 | NUR ---
RN NOTES BP OF 196/120. DUE BP MEDS GIVEN ORDERED. WILL RECHECKED BP. NO OTHE S/SX NOTED.
[2022-01-15 08:15] LABS: ALBUMIN 2.3 g/dL (3.4-5.0); BILIRUBIN,DIRECT 0.1 mg/dL (0.0-0.2); BILIRUBIN,TOTAL 0.6 mg/dL (0.2-1.0); CALCIUM, SERUM 7.8 mg/dL (8.5-10.1); CREATININE 2.3 mg/dL (0.6-1.3); MAGNESIUM 2.2 mg/dL (1.8-2.4); PHOSPHORUS 4.3 mg/dL (2.5-4.9); POTASSIUM 4.2 mmol/L (3.5-5.1); TOTAL PROTEIN, SERUM 6.4 g/dL (6.4-8.2)
[2022-01-15] MEDS: RIFAMPIN 300 MG CAPSULE PO SCH (08:32)
[2022-01-15] MEDS: LACTOBACILLUS RHAMNOSUS GG 1 EACH CAP.SPRINK PO SCH ×2 (08:32→16:14)
[2022-01-15] MEDS: ASPIRIN 81 MG TAB.CHEW PO SCH (08:32)
[2022-01-15] MEDS: AMLODIPINE BESYLATE 10 MG TABLET PO SCH (08:33)
[2022-01-15] MEDS: FOLIC ACID 1 MG TABLET PO SCH (08:33)
[2022-01-15] MEDS: MULTIVITAMINS,THERAGRAN 1 UDTAB TABLET PO SCH (08:33)
[2022-01-15] MEDS ORDERED: METOPROLOL TARTRATE 25 MG TABLET PO SCH (09:00)
[2022-01-15 09:28] LABS: BILIRUBIN,URINE NEGATIVE (NEGATIVE); COLOR,URINE YELLOW (YELLOW); LEUKOCYTE ESTERASE ,URINE NEGATIVE (NEGATIVE); NITRITE, URINE NEGATIVE (NEGATIVE); PH,URINE 7.5 (5.0-8.0); PROTEIN,URINE 100 mg/dl (NEGATIVE); UGLUCOSE NEGATIVE (NEGATIVE); UROBILINOGEN,URINE 0.2 EU/dL (0.2)
--- NOTE | 2022-01-15 10:05 | NUR ---
RN NOTES BP 186/118. NO OTHER S/SX NOTED. WILL CONTINUE TO MONITOR.
--- NOTE | 2022-01-15 10:31 | NUR ---
RN NOTES BP 186/118 AFTER MORNING BP MEDS. DUE CATAPRES GIVEN ORDERED.
[2022-01-15 10:38] LABS: BACTERIA,URINE Few /HPF (None Seen); RBC,URINE 81-100 /HPF (0-2); SQUAMOUS EPITHELIAL CELL,UR Few /HPF (None Seen); WBC,URINE 0-2 /HPF (0-3)
[2022-01-15 11:24] LABS: EOSINOPHIL,URINE None Seen
--- NOTE | 2022-01-15 11:33 | NUR ---
JOSE NOTES RECHECKED BP 164/103 mg/dl. will continue to monitor. Addendum: 01/15/22 at 1349 by INDIGO AHMADI RN DR[address] LAKHANI MADE AWARE.
[2022-01-15] MEDS ORDERED: NIFEdipine XL (30MG) 30 MG TAB PO SCH (14:00)
--- NOTE | 2022-01-15 18:31 | NUR ---
MS RN CLOSING NOTES PATIENT IN BED, ASLEEP, EASILY AWAKEN BY VERBAL AND TACTILE STIMULI. IN NO ACUTE DISTRESS NOTED. ON RA TOLERATING WELL, NO S/SX OF RESPIRATORY DISTRESS NOTED. IV ACCESS ON RFA G#20, PATENT AND FLUSHES WELL. SAFETY PRECAUTIONS IN PLACE: BED ON LOWEST LOCKED POSITION, SIDE RAILS UP X 2, CALL LIGHT WITHIN EASY REACH. ALL NEEDS ATTENDED AND MET. DUE MEDS GIVEN ORDERED. WILL ENDORSE TO ONCOMING SHIFT FOR BELLE.
[2022-01-15] MEDS: ALBUTEROL FS 2.5 MG/3 ML VIAL.NEB NEB SCH (20:17)
[2022-01-15] MEDS: IPRATROPIUM NEB FS 0.5 MG/2.5 ML AMPUL.NEB NEB SCH (20:17)
[2022-01-15] MEDS ORDERED: PROPRANOLOL HCL 10 MG TABLET PO SCH (21:00)
[2022-01-15] MEDS: SIMVASTATIN 10 MG TABLET PO SCH (21:57)
[2022-01-15] MEDS: METOPROLOL TARTRATE 50 MG TABLET PO SCH (21:57)
[2022-01-16] VITALS (7 sets, daily range): BP systolic 155–198; BP diastolic 90–123
[2022-01-16 01:15] LABS: CREATININE, URINE 120.3 MG/DL (30.0-125.0)
[2022-01-16] MEDS: IPRATROPIUM NEB FS 0.5 MG/2.5 ML AMPUL.NEB NEB SCH ×4 (01:30→20:03)
[2022-01-16] MEDS: ALBUTEROL FS 2.5 MG/3 ML VIAL.NEB NEB SCH ×4 (01:30→20:03)
[2022-01-16 07:27] LABS: BASOPHILS % (AUTO) 0.3 % (0.0-2.0); EOSINOPHILS % (AUTO) 3.1 % (0.0-6.0); HEMATOCRIT 40 % (39-51); HEMOGLOBIN 13.7 g/dL (13.5-17.5); LYMPHOCYTES # (AUTO) 1.6 K/uL (0.8-4.8); LYMPHOCYTES % (AUTO) 13.1 % (20.0-44.0); MEAN CORPUSCULAR HGB CONC 34 g/dl (31.0-36.0); MEAN CORPUSCULAR VOLUME 96 fL (80-96); MONOCYTES # (AUTO) 1.4 K/uL (0.1-1.30); MONOCYTES % (AUTO) 11.7 % (2.0-12.0); NEUTROPHILS # (AUTO) 8.9 K/uL (1.8-8.9); NEUTROPHILS % (AUTO) 71.8 % (43.0-81.0); PLATELET COUNT (AUTO) 334 K/uL (150-450); RED BLOOD CELL COUNT(AUTO) 4.18 MIL/uL (4.5-6.0); WHITE BLOOD COUNT (AUTO) 12.4 K/uL (4.3-11.0)
--- NOTE | 2022-01-16 07:30 | NUR ---
MS RN OPENING NOTES RECEIVED PATIENT ON BED RESTING AND A/O X4. ON ROOM AIR TOLERATING WELL. NO SOB NOTED. NOT IN DISTRESS. WITH NO COMPLAINTS OF PAIN OR DISCOMFORT AT THIS TIME. WITH IV ACCESS AT THE RIGHT FOREARM G20 SALINE LOCKED, PATENT AND INTACT. SAFETY MEASURES IN PLACED. CALL LIGHT WITHIN REACH. BED ON LOWEST LOCKED POSITION, SIDE RAILS UP X2. WILL CONTINUE TO MONITOR.
[2022-01-16 08:47] LABS: ALBUMIN 2.4 g/dL (3.4-5.0); CALCIUM, SERUM 9.9 mg/dL (8.5-10.1); CREATININE 2.2 mg/dL (0.6-1.3); MAGNESIUM 1.9 mg/dL (1.8-2.4); PHOSPHORUS 3.9 mg/dL (2.5-4.9); POTASSIUM 4.4 mmol/L (3.5-5.1); TOTAL PROTEIN, SERUM 6.9 g/dL (6.4-8.2)
[2022-01-16 08:59] LABS: THYROID STIMULATING HORMONE 3.28 uIU/mL (0.358-3.74); URIC ACID 8.5 mg/dL (2.6-7.2)
[2022-01-16] MEDS: LACTOBACILLUS RHAMNOSUS GG 1 EACH CAP.SPRINK PO SCH ×2 (09:09→17:24)
[2022-01-16] MEDS: RIFAMPIN 300 MG CAPSULE PO SCH (09:09)
[2022-01-16] MEDS: METOPROLOL TARTRATE 50 MG TABLET PO SCH ×2 (09:09→21:09)
[2022-01-16] MEDS: MULTIVITAMINS,THERAGRAN 1 UDTAB TABLET PO SCH (09:09)
[2022-01-16] MEDS: AMLODIPINE BESYLATE 10 MG TABLET PO SCH (09:10)
[2022-01-16] MEDS: FOLIC ACID 1 MG TABLET PO SCH (09:10)
[2022-01-16] MEDS: ASPIRIN 81 MG TAB.CHEW PO SCH (09:10)
--- NOTE | 2022-01-16 09:18 | NUR ---
WOUND CARE CONSULT: PT PRESENTS WITH DISCOLORATIONS, SKIN CONDITION/RASH AND SOME SCABS TO LOWER LEGS, PRESENT ON ADMISSION.PT STATES SOMETIMES SCRATCHES HIS LEGS. DR ISAACS CALLED FOR DPM CONSULT. IN AGREEMENT WITH PLAN OF CARE.
[2022-01-16] MEDS: CLONIDINE HCL 0.1 MG TABLET PO PRN ×2 (09:32→21:09)
--- NOTE | 2022-01-16 11:37 | NUR ---
RN NOTE DR. GRIMES MADE AWARE OF PATIENT'S HIGH BLOOD PRESSURE AND ORDERED LISINOPRIL 10MG NOW AND THEN Q6H PRN FOR HIGH BP AND ATIVAN 1MG PO Q6H PRN FOR ANXIETY AND AGITATION.
[2022-01-16] MEDS ORDERED: LISINOPRIL (10MG) 10 MG TABLET PO SCH (13:00)
[2022-01-16] MEDS ORDERED: PERMETHRIN 5% CRM 60 GM TUBE TP ONE (13:00)
[2022-01-16] MEDS: LORAZEPAM 1 MG TABLET PO PRN ×2 (13:05→21:13)
[2022-01-16] MEDS: TRIAMCINOLONE ACETONIDE 0.1% CR 15 GM TUBE TP SCH (17:23)
--- NOTE | 2022-01-16 19:30 | NUR ---
MS RN CLOSING NOTES PATIENT ON BED RESTING AND A/O X4. ON ROOM AIR TOLERATING WELL. NO SOB NOTED. NOT IN DISTRESS. WITH NO COMPLAINTS OF PAIN OR DISCOMFORT AT THIS TIME. WITH IV ACCESS AT THE RIGHT FOREARM G20 SALINE LOCKED, PATENT AND INTACT. DUE MEDS GIVEN. SAFETY MEASURES IN PLACED. CALL LIGHT WITHIN REACH. BED ON LOWEST LOCKED POSITION, SIDE RAILS UP X2. WILL ENDORSE TO NEXT SHIFT FOR BELLE.
--- NOTE | 2022-01-16 19:40 | NUR ---
MS/RN OPENING NOTE RECEIVED PATIENT SLEEPING IN BED. ALERT AND ORIENTED X 4. ABLE TO MAKE NEEDS KNOWN. DENIES PAIN AT THIS TIME. CONTINUES ON ROOM AIR WITH NO S/SX OF RESPIRATORY DISTRESS NOTED. IV ACCESS TO RIGHT FOREARM #20G INTACT, PATENT AND SALINE LOCKED. CONTINUES WITH RASH TO ALL EXTREMITIES. CALL LIGHT WITHIN REACH. ASPIRATION, FALL AND SAFETY PRECAUTIONS MAINTAINED. WILL CONTINUE TO MONITOR.
[2022-01-16] MEDS: SIMVASTATIN 10 MG TABLET PO SCH (21:08)
[2022-01-16] MEDS ORDERED: IV NS 0.9% 1,000 ML IV ONE (23:30)
[2022-01-17] MEDS: IPRATROPIUM NEB FS 0.5 MG/2.5 ML AMPUL.NEB NEB SCH ×3 (01:30→13:26)
[2022-01-17] MEDS: ALBUTEROL FS 2.5 MG/3 ML VIAL.NEB NEB SCH ×3 (01:30→13:26)
[2022-01-17 03:52] LABS: BILIRUBIN,URINE SMALL (NEGATIVE); COLOR,URINE AMBER (YELLOW); LEUKOCYTE ESTERASE ,URINE TRACE (NEGATIVE); NITRITE, URINE NEGATIVE (NEGATIVE); PH,URINE 7.5 (5.0-8.0); PROTEIN,URINE >=300 mg/dl (NEGATIVE); UGLUCOSE NEGATIVE (NEGATIVE)
[2022-01-17 05:09] LABS: RBC,URINE TOO NUMEROUS TO COUN /HPF (0-2); SQUAMOUS EPITHELIAL CELL,UR Few /HPF (None Seen)
[2022-01-17 05:10] LABS: BACTERIA,URINE Moderate /HPF (None Seen)
--- NOTE | 2022-01-17 06:40 | NUR ---
MS/RN CLOSING NOTE PATIENT CURRENTLY SLEEPING IN BED. ALERT AND ORIENTED X 4. ABLE TO MAKE NEEDS KNOWN. DENIES PAIN AT THIS TIME. CONTINUES ON ROOM AIR WITH NO S/SX OF RESPIRATORY DISTRESS NOTED. IV ACCESS TO RIGHT FOREARM #20G INTACT, PATENT AND SALINE LOCKED. CONTINUES ON IV NS @ 75ML/HR X 1L. CONTINUES WITH RASH TO ALL EXTREMITIES. PERMETHRIN CREAM APPLIED LAST NIGHT - TO BE REMOVED THIS AM. CALL LIGHT WITHIN REACH. ASPIRATION, FALL AND SAFETY PRECAUTIONS MAINTAINED. WILL ENDORSE PLAN OF CARE TO ONCOMING SHIFT.
[2022-01-17] MEDS: CLONIDINE HCL 0.1 MG TABLET PO PRN (07:55)
[2022-01-17] MEDS: LORAZEPAM 1 MG TABLET PO PRN (07:58)
[2022-01-17 08:06] LABS: COMPLEMENT C3, SERUM 152 mg/dL (82-167); COMPLEMENT C4, SERUM 30 mg/dL (12-38)
--- NOTE | 2022-01-17 08:08 | NUR ---
RN OPENING NOTES PATIENT AWAKE IN BED RESTING. A/O X4. NO S/S OF PAIN NOTED AT THIS TIME. ON ROOM AIR, NO DISTRESS OR SHORTNESS OF BREATH NOTED. IV ACCESS RFA #20G, INTACT, PATENT AND FLUSHING WELL. FALL AND SAFETY MEASURES IN PLACE, BED ALARM ON, BED IN LOW LOCK POSITION CALL LIGHT AND TABLE WITHIN EASY REACH, SIDE RAIL UP X2. WILL CONTINUE TO MONITOR.
--- NOTE | 2022-01-17 08:15 | NUR ---
RN NOTE PATIENT BLOOD PRESSURE IS 182/124, PULSE 77, PRN CLONIDINE WAS GIVEN, WILL CONTINUE TO MONITOR PATIENT.
[2022-01-17] MEDS ORDERED: LISINOPRIL (10MG) 10 MG TABLET PO SCH (09:00)
[2022-01-17] MEDS: ASPIRIN 81 MG TAB.CHEW PO SCH (09:22)
[2022-01-17] MEDS: RIFAMPIN 300 MG CAPSULE PO SCH (09:22)
[2022-01-17] MEDS: METOPROLOL TARTRATE 50 MG TABLET PO SCH (09:22)
[2022-01-17] MEDS: FOLIC ACID 1 MG TABLET PO SCH (09:22)
[2022-01-17] MEDS: LACTOBACILLUS RHAMNOSUS GG 1 EACH CAP.SPRINK PO SCH (09:23)
[2022-01-17] MEDS: MULTIVITAMINS,THERAGRAN 1 UDTAB TABLET PO SCH (09:23)
[2022-01-17] MEDS: AMLODIPINE BESYLATE 10 MG TABLET PO SCH (09:23)
[2022-01-17] MEDS: TRIAMCINOLONE ACETONIDE 0.1% CR 15 GM TUBE TP SCH (09:26)
[2022-01-17 09:37] VITALS: BP 182/124
[2022-01-17 10:07] LABS: *ANA ANTI-CENTROMERE B AB <0.2 AI (0.0-0.9); *ANA ANTI-DNA(DS) AB, QN <1 IU/mL (0-9); *ANA ANTI-JO-1 <0.2 AI (0.0-0.9); *ANA ANTICHROMATIN ANTIBODY <0.2 AI (0.0-0.9); *ANA RNP ANTIBODIES <0.2 AI (0.0-0.9); *ANA SJOGREN'S ANTI-SS-A <0.2 AI (0.0-0.9); *ANA SJOGREN'S ANTI-SS-B <0.2 AI (0.0-0.9); *ANAANTI-SCLERODERMA-70 AB <0.2 AI (0.0-0.9); *ANASMITH AB <0.2 AI (0.0-0.9); *SPE A/G RATIO 0.8 (0.7-1.7); *SPE ALPHA-1-GLOBULIN 0.3 g/dL (0.0-0.4); *SPE ALPHA-2-GLOBULIN 0.8 g/dL (0.4-1.0); *SPE BETA GLOBULIN 1.5 g/dL (0.7-1.3); *SPE M-SPIKE Not Observed g/dL (Not Observed)
--- NOTE | 2022-01-17 13:00 | NUR ---
BOOK CLEANER NOTE PATIENT LEFT UNIT AMA, PATIENT A/O X4. PATIENT REFUSED TO TAKE VITAL SIGNS, PATIENT REFUSED PICTURES AND SKIN ASSESSMENT. NO IV ACCESS. NAME ARM REMOVED. ALL BELONGINGS CHECKED AND SIGNED BY TWO NURSES, DISCHARGE PAPERS SIGNED BY TWO NURSES, PATIENT REFUSED TO WAIT FOR DISCHARGE PAPERS. RISK OF LEAVING AMA WAS DISCUSSED WITH PATIENT, HEALTH AND TEACHING INSTRUCTIONS WERE DISCUSSED WITH PATIENT, PATIENT VERBALIZED UNDERSTANDING AND PATIENT SIGNED AMA FORM. PATIENT LEFT UNIT AMBULATING WITH NO SIGNS OF DISTRESS, ACCOMPANIED BY ROLL TENDER TO THE LOBBY. CHARGE NURSE AWARE OF DISCHARGE.
[2022-01-18 12:06] LABS: *ANCANTIMYELOPEROXIDASE (MPO) <9.0 U/mL (0.0-9.0); *ANCANTIPROTEINASE 3 (PR-3) AB <3.5 U/mL (0.0-3.5)
[2022-01-18 13:07] LABS: *ANCA ATYPICAL p-ANCA <1:20 titer (Neg:<1:20); *ANCA CYTOPLASMIC (C-ANCA) <1:20 titer (Neg:<1:20); *ANCA PERINUCLEAR (P-ANCA) <1:20 titer (Neg:<1:20)
== END 2022-01-17 13:50 | disposition left against medical advice (07) | DRG 425 ==
LOC: ER 19:29 → MED 01-15 00:20
PROVIDERS: ADMIT Nurse Practitioner Acute Care; ATTEND Internal Medicine
DX: E87.70 Fluid overload, unspecified (principal); N17.0 Acute kidney failure with tubular necrosis; E44.0 Moderate protein-calorie malnutrition; N01.9 Rapidly progressive nephritic syndrome with unspecified morphologic changes; E88.09 Other disorders of plasma-protein metabolism, not elsewhere classified; M31.0 Hypersensitivity angiitis; B86 Scabies; I87.2 Venous insufficiency (chronic) (peripheral); E87.1 Hypo-osmolality and hyponatremia; K70.9 Alcoholic liver disease, unspecified; D72.829 Elevated white blood cell count, unspecified; L40.9 Psoriasis, unspecified; Z20.822 Contact with and (suspected) exposure to COVID-19; Z87.81 Personal history of (healed) traumatic fracture; Z98.890 Other specified postprocedural states; Z79.82 Long term (current) use of aspirin; Z79.51 Long term (current) use of inhaled steroids; Z79.899 Other long term (current) drug therapy; Z86.73 Personal history of transient ischemic attack (TIA), and cerebral infarction without residual deficits; F17.210 Nicotine dependence, cigarettes, uncomplicated; F10.10 Alcohol abuse, uncomplicated; Y90.9 Presence of alcohol in blood, level not specified; R31.29 Other microscopic hematuria
CPT/HCPCS: 36415; 76705-TC; 76770-TC; 80048-TC; 80053-TC; 80076-TC; 81001; 82550-TC; 82570-TC; 83520; 83735-TC; 83970; 84100-TC; 84155; 84155-TC; 84165; 84300-TC; 84443-TC; 84550-TC; 85025-TC; 85652-TC; 85730-TC; 86140-TC; 86225; 86235; 86256; 86592; 86706; 86803; 87040-TC; 87081-TC; 87086-TC; 87340; 93970-TC; 94799-TC; C9803; G0378; J7030

== ENCOUNTER 2024-02-01 22:26 | Inpatient (IN) | payer OTHER ==
[~2024-02-01] VITALS: Ht 182.9 cm; Wt 79.4 kg
[2024-02-01] MEDS ORDERED: ONDANSETRON HCL/PF 4 MG/2 ML VIAL ONE (22:52)
[2024-02-01] MEDS ORDERED: MORPHINE SULFATE INJ 4 MG/ML DISP.SYRIN ONE (22:53)
[2024-02-01] MEDS: MORPHINE SULFATE INJ 2 MG/ML DISP.SYRIN IV ONE (23:25)
[2024-02-01] MEDS: IV NS 0.9% 500 ML BAG IV ONE (23:25)
[2024-02-01] MEDS: ONDANSETRON HCL/PF 4 MG/2 ML VIAL IVP ONE (23:25)
[2024-02-01 23:44] LABS: BASOPHILS % (AUTO) 0.2 % (0.0-2.0); EOSINOPHILS # (AUTO) 0.1 K/uL (0.0-0.7); EOSINOPHILS % (AUTO) 0.8 % (0.0-6.0); HEMATOCRIT 30 % (39-51); LYMPHOCYTES % (AUTO) 17.3 % (20.0-44.0); MEAN CORPUSCULAR HEMOGLOBIN 32 PG (26.0-33.0); MEAN CORPUSCULAR HGB CONC 34 g/dl (31.0-36.0); MEAN CORPUSCULAR VOLUME 95 fL (80-96); MONOCYTES # (AUTO) 1.2 K/uL (0.1-1.30); MONOCYTES % (AUTO) 10.4 % (2.0-12.0); NEUTROPHILS # (AUTO) 8.2 K/uL (1.8-8.9); NEUTROPHILS % (AUTO) 71.3 % (43.0-81.0); PLATELET COUNT (AUTO) 258 K/uL (150-450); RED BLOOD CELL COUNT(AUTO) 3.11 MIL/uL (4.5-6.0); RED CELL DISTRIBUTION WIDTH 14.9 % (11.5-15.0); WHITE BLOOD COUNT (AUTO) 11.6 K/uL (4.3-11.0)
[2024-02-01 23:52] LABS: CALCIUM, SERUM 8.3 mg/dL (8.5-10.1); CARBON DIOXIDE 25 mmol/L (21-32); CHLORIDE 105 mmol/L (98-107); CREATININE 2.7 mg/dL (0.6-1.3); GLUCOSE 130 mg/dL (74-106); POTASSIUM 4.6 mmol/L (3.5-5.1); SODIUM SERUM 136 mmol/L (136-145); UREA NITROGEN, BLOOD 34 mg/dL (7-18)
[2024-02-01 23:57] LABS: ALANINE AMINOTRANSFERASE 15 U/L (12-78); ALBUMIN 2.4 g/dL (3.4-5.0); ALKALINE PHOSPHATASE 65 U/L (46-116); ASPARTATE AMINOTRANSFERASE 11 U/L (15-37); BILIRUBIN,DIRECT 0.1 mg/dL (0.0-0.2); BILIRUBIN,TOTAL 0.4 mg/dL (0.2-1.0); INR 0.98 (0.91-1.10); LIPASE 95 U/L (16-77); PARTIAL THROMBOPLASTIN TIME 26.8 SEC (24.3-34.3); PROTHROMBIN TIME 10.4 SECS (9.2-11.1); TOTAL PROTEIN, SERUM 5.2 g/dL (6.4-8.2)
[2024-02-02 00:36] LABS: APPEARANCE,URINE CLEAR (CLEAR); BILIRUBIN,URINE NEGATIVE (NEGATIVE); BLOOD, URINE 3+ Ery/uL (NEGATIVE); COLOR,URINE YELLOW (YELLOW); KETONES,URINE NEGATIVE (NEGATIVE); LEUKOCYTE ESTERASE ,URINE NEGATIVE (NEGATIVE); NITRITE, URINE NEGATIVE (NEGATIVE); PROTEIN,URINE 3+ mg/dl (NEGATIVE); UGLUCOSE NEGATIVE (NEGATIVE); UROBILINOGEN,URINE 0.2 EU/dL (0.2)
[2024-02-02] MEDS ORDERED: ACETAMINOPHEN 325 MG TABLET PO PRN (01:00)
[2024-02-02] MEDS ORDERED: ONDANSETRON HCL/PF 4 MG/2 ML VIAL IVP PRN (01:00)
[2024-02-02] MEDS ORDERED: MAGNESIUM HYDROXIDE 30 ML UDC PO PRN (01:00)
[2024-02-02] MEDS ORDERED: MORPHINE SULFATE INJ 2 MG/ML DISP.SYRIN IV PRN (01:00)
[2024-02-02] MEDS ORDERED: Z GUARD REMEDY 4 OZ OINT TP PRN (01:00)
[2024-02-02] MEDS ORDERED: MAG HYDROX/AL HYDROX/SIMETH 30 ML UDC PO PRN (01:00)
[2024-02-02] MEDS ORDERED: TEMAZEPAM 15 MG CAPSULE PO PRN (01:00)
[2024-02-02] MEDS ORDERED: HYDROCODONE/APAP 5/325MG TABLET PO PRN (01:00)
[2024-02-02 01:17] LABS: ADD URINE CULTURE NO; BACTERIA,URINE None seen /HPF (None Seen); RBC,URINE 51-80 /HPF (0-2); WBC,URINE 0-2 /HPF (0-3)
[2024-02-02 01:18] LABS: MUCUS,URINE Many /LPF (None Seen)
[2024-02-02] MEDS ORDERED: BUDE0.5A4 NEB (02:39)
[2024-02-02] MEDS ORDERED: HYDR-3972 PO ×2 (02:39)
[2024-02-02] MEDS ORDERED: ASCO500T21 PO (02:39)
[2024-02-02] MEDS ORDERED: SODI3.5O5 RIGHTEYE (02:39)
[2024-02-02] MEDS ORDERED: GABA-532 PO (02:39)
[2024-02-02] MEDS ORDERED: ALBU0.633 NEB (02:39)
[2024-02-02] MEDS ORDERED: LATA7.5D EACHEYE (02:39)
[2024-02-02] MEDS ORDERED: ACET325T53 PO (02:39)
[2024-02-02] MEDS ORDERED: ALEN70TA3 PO (02:39)
[2024-02-02] MEDS ORDERED: CLOP75TA15 PO (02:39)
[2024-02-02] MEDS ORDERED: DEXT15DR6 EACHEYE (02:39)
[2024-02-02] MEDS ORDERED: ATOR40TA PO (02:39)
[2024-02-02] MEDS ORDERED: ACET325C7 PO (02:39)
[2024-02-02] MEDS ORDERED: DORZ10DR11 EACHEYE (02:39)
[2024-02-02 02:40] VITALS: BP 135/88; TEMP 97.3; O2SAT 99
[2024-02-02 07:30] VITALS: BP 121/95; TEMP 97.9; O2SAT 93
[2024-02-02] MEDS ORDERED: AMLO-212 PO (08:08)
[2024-02-02] MEDS: PANTOPRAZOLE 40 MG TABLET.DR PO SCH (08:08)
[2024-02-02] MEDS ORDERED: ASPI-1169 PO (08:08)
[2024-02-02] MEDS ORDERED: LOSA50TA39 PO (08:08)
[2024-02-02] MEDS ORDERED: CARV6.252 PO (08:08)
[2024-02-02] MEDS: CARVEDILOL 6.25 MG TABLET PO SCH (10:59)
[2024-02-02] MEDS: AMLODIPINE BESYLATE 5 MG TABLET PO SCH (11:00)
[2024-02-02 11:04] LABS: BASOPHILS % (AUTO) 0.3 % (0.0-2.0); EOSINOPHILS # (AUTO) 0.1 K/uL (0.0-0.7); EOSINOPHILS % (AUTO) 0.9 % (0.0-6.0); HEMATOCRIT 26 % (39-51); HEMOGLOBIN 8.6 g/dL (13.5-17.5); LYMPHOCYTES # (AUTO) 2.3 K/uL (0.8-4.8); LYMPHOCYTES % (AUTO) 15.5 % (20.0-44.0); MEAN CORPUSCULAR HEMOGLOBIN 32 PG (26.0-33.0); MEAN CORPUSCULAR HGB CONC 34 g/dl (31.0-36.0); MEAN CORPUSCULAR VOLUME 95 fL (80-96); MONOCYTES # (AUTO) 1.7 K/uL (0.1-1.30); NEUTROPHILS # (AUTO) 10.4 K/uL (1.8-8.9); NEUTROPHILS % (AUTO) 71.3 % (43.0-81.0); PLATELET COUNT (AUTO) 261 K/uL (150-450); RED BLOOD CELL COUNT(AUTO) 2.67 MIL/uL (4.5-6.0); RED CELL DISTRIBUTION WIDTH 14.6 % (11.5-15.0); WHITE BLOOD COUNT (AUTO) 14.6 K/uL (4.3-11.0)
[2024-02-02 11:18] LABS: CALCIUM, SERUM 8.1 mg/dL (8.5-10.1); CREATININE 3.6 mg/dL (0.6-1.3); POTASSIUM 5.2 mmol/L (3.5-5.1)
[2024-02-02] MEDS: IV NS 0.9% 1,000 ML IV PRN (15:58)
[2024-02-02 16:00] VITALS: BP 95/75; TEMP 99.1; O2SAT 92
[2024-02-02 20:00] VITALS: BP 126/73; TEMP 98.6; O2SAT 93
[2024-02-03] VITALS: BP 138/81; TEMP 98.8; O2SAT 95
[2024-02-03 05:14] VITALS: BP 153/88; TEMP 98.8; O2SAT 95
[2024-02-03 07:28] LABS: BASOPHILS # (AUTO) 0.1 K/uL (0.0-0.2); BASOPHILS % (AUTO) 0.4 % (0.0-2.0); EOSINOPHILS # (AUTO) 0.2 K/uL (0.0-0.7); EOSINOPHILS % (AUTO) 1.3 % (0.0-6.0); HEMATOCRIT 22 % (39-51); HEMOGLOBIN 7.5 g/dL (13.5-17.5); LYMPHOCYTES # (AUTO) 2.9 K/uL (0.8-4.8); LYMPHOCYTES % (AUTO) 20.1 % (20.0-44.0); MEAN CORPUSCULAR HEMOGLOBIN 33 PG (26.0-33.0); MEAN CORPUSCULAR HGB CONC 34 g/dl (31.0-36.0); MEAN CORPUSCULAR VOLUME 96 fL (80-96); MONOCYTES # (AUTO) 2.1 K/uL (0.1-1.30); MONOCYTES % (AUTO) 14.5 % (2.0-12.0); NEUTROPHILS # (AUTO) 9.1 K/uL (1.8-8.9); NEUTROPHILS % (AUTO) 63.7 % (43.0-81.0); PLATELET COUNT (AUTO) 249 K/uL (150-450); RED BLOOD CELL COUNT(AUTO) 2.32 MIL/uL (4.5-6.0); RED CELL DISTRIBUTION WIDTH 14.6 % (11.5-15.0); WHITE BLOOD COUNT (AUTO) 14.3 K/uL (4.3-11.0)
[2024-02-03 07:30] VITALS: BP 155/89; TEMP 98.4; O2SAT 95
[2024-02-03 07:56] LABS: ALBUMIN 2.2 g/dL (3.4-5.0); BILIRUBIN,TOTAL 0.4 mg/dL (0.2-1.0); CALCIUM, SERUM 8.1 mg/dL (8.5-10.1); CREATININE 3.8 mg/dL (0.6-1.3); MAGNESIUM 2.1 mg/dL (1.8-2.4); PHOSPHORUS 4.9 mg/dL (2.5-4.9); POTASSIUM 4.9 mmol/L (3.5-5.1); TOTAL PROTEIN, SERUM 5.1 g/dL (6.4-8.2)
[2024-02-03 16:00] VITALS: BP 157/95; TEMP 97.7; O2SAT 93
[2024-02-03 17:27] LABS: HEMOGLOBIN 7.4 g/dL (13.5-17.5)
[2024-02-03 19:42] LABS: APPEARANCE,URINE CLEAR (CLEAR); BILIRUBIN,URINE NEGATIVE (NEGATIVE); BLOOD, URINE 3+ Ery/uL (NEGATIVE); COLOR,URINE YELLOW (YELLOW); KETONES,URINE NEGATIVE (NEGATIVE); LEUKOCYTE ESTERASE ,URINE NEGATIVE (NEGATIVE); NITRITE, URINE NEGATIVE (NEGATIVE); PH,URINE 5.5 (5.0-8.0); PROTEIN,URINE 2+ mg/dl (NEGATIVE); UGLUCOSE NEGATIVE (NEGATIVE); UROBILINOGEN,URINE 0.2 EU/dL (0.2)
[2024-02-03 19:57] LABS: EOSINOPHIL,URINE None Seen; WBC,URINE NONE SEEN /HPF (0-3)
[2024-02-03 19:58] LABS: ADD URINE CULTURE NO; BACTERIA,URINE None seen /HPF (None Seen); MUCUS,URINE Moderate /LPF (None Seen); SQUAMOUS EPITHELIAL CELL,UR None Seen /HPF (None Seen)
[2024-02-03 20:00] VITALS: BP 144/74; TEMP 99; O2SAT 97
[2024-02-03 21:23] LABS: CREATININE, URINE 88.2 MG/DL (30.0-125.0); URINE TOTAL PROTEIN 131.6 mg/dL (0-11.9)
[2024-02-04] VITALS (7 sets, daily range): BP systolic 132–169; BP diastolic 70–101; TEMP 98.1–99.3; O2SAT 94–99
[2024-02-04 07:31] LABS: BASOPHILS % (AUTO) 0.2 % (0.0-2.0); EOSINOPHILS # (AUTO) 0.2 K/uL (0.0-0.7); EOSINOPHILS % (AUTO) 1.1 % (0.0-6.0); HEMATOCRIT 23 % (39-51); HEMOGLOBIN 7.6 g/dL (13.5-17.5); LYMPHOCYTES # (AUTO) 1.7 K/uL (0.8-4.8); LYMPHOCYTES % (AUTO) 12.6 % (20.0-44.0); MEAN CORPUSCULAR HEMOGLOBIN 32 PG (26.0-33.0); MEAN CORPUSCULAR HGB CONC 34 g/dl (31.0-36.0); MEAN CORPUSCULAR VOLUME 95 fL (80-96); MONOCYTES # (AUTO) 1.7 K/uL (0.1-1.30); MONOCYTES % (AUTO) 12.7 % (2.0-12.0); NEUTROPHILS # (AUTO) 10.1 K/uL (1.8-8.9); NEUTROPHILS % (AUTO) 73.4 % (43.0-81.0); PLATELET COUNT (AUTO) 273 K/uL (150-450); RED BLOOD CELL COUNT(AUTO) 2.37 MIL/uL (4.5-6.0); WHITE BLOOD COUNT (AUTO) 13.7 K/uL (4.3-11.0)
[2024-02-04 07:53] LABS: CALCIUM, SERUM 8.6 mg/dL (8.5-10.1); CREATININE 3.4 mg/dL (0.6-1.3); MAGNESIUM 1.9 mg/dL (1.8-2.4); POTASSIUM 4.7 mmol/L (3.5-5.1)
[2024-02-04] MEDS: ALBUTEROL FS 2.5 MG/0.5 ML VIAL.NEB NEB PRN (13:09)
[2024-02-05 00:06] LABS: PTH, INTACT 63 pg/mL (15-65)
[2024-02-05 07:30] VITALS: BP 182/107; TEMP 99.1; O2SAT 96
[2024-02-05 09:30] VITALS: BP 153/89
[2024-02-05 11:07] LABS: *SPE ALBUMIN 2.2 g/dL (2.9-4.4); *SPE ALPHA-1-GLOBULIN 0.2 g/dL (0.0-0.4); *SPE ALPHA-2-GLOBULIN 0.6 g/dL (0.4-1.0); *SPE BETA GLOBULIN 0.9 g/dL (0.7-1.3); *SPE GLOBULIN, TOTAL 2.3 g/dL (2.2-3.9); *SPE M-SPIKE Not Observed g/dL (Not Observed); *SPE PROTEIN TOTAL 4.5 g/dL (6.0-8.5); *SPEGAMMA GLOBULIN 0.5 g/dL (0.4-1.8)
== END 2024-02-05 15:00 | disposition home or self-care (01) | DRG 813 ==
LOC: ER 22:33 → TELE 02-02 02:08 → MED 02-03 09:37
PROVIDERS: ADMIT Nurse Practitioner Acute Care
DX: N99.840 Postprocedural hematoma of a genitourinary system organ or structure following a genitourinary system procedure (principal); N17.0 Acute kidney failure with tubular necrosis; E44.0 Moderate protein-calorie malnutrition; D63.1 Anemia in chronic kidney disease; E88.09 Other disorders of plasma-protein metabolism, not elsewhere classified; I16.0 Hypertensive urgency; I12.9 Hypertensive chronic kidney disease with stage 1 through stage 4 chronic kidney disease, or unspecified chronic kidney disease; F17.210 Nicotine dependence, cigarettes, uncomplicated; M89.8X9 Other specified disorders of bone, unspecified site; N18.9 Chronic kidney disease, unspecified; Z79.82 Long term (current) use of aspirin; Z86.16 Personal history of COVID-19; Z86.73 Personal history of transient ischemic attack (TIA), and cerebral infarction without residual deficits; Z87.01 Personal history of pneumonia (recurrent); Y84.8 Other medical procedures as the cause of abnormal reaction of the patient, or of later complication, without mention of misadventure at the time of the procedure; Y73.8 Miscellaneous gastroenterology and urology devices associated with adverse incidents, not elsewhere classified; Y92.009 Unspecified place in unspecified non-institutional (private) residence as the place of occurrence of the external cause; Z68.23 Body mass index [BMI] 23.0-23.9, adult
CPT/HCPCS: 36415; 71045-TC; 76770-TC; 80048-TC; 80053-TC; 80076-TC; 81001; 82550-TC; 82570-TC; 82962-TC; 83690-TC; 83735-TC; 83970; 84100-TC; 84155; 84165; 84300-TC; 84484-TC; 85025-TC; 85027-TC; 85730-TC; A4223; G0378; J2270; J2405; J7030; J7050

== ENCOUNTER 2024-11-04 10:56 | Emergency (ER) | payer OTHER ==
[~2024-11-04] VITALS: Ht 182.9 cm; Wt 63.5 kg
[~2024-11-04 10:56] MED LIST changes: -ACET325T53 PO; -ALBU8.5H8 IH; -ALBUT2 NEB; +AMLO-212 PO; -AMLO-213 PO; +CARV6.252 PO; -Cephalexin Monohydrate PO; -FOLI0.4T6 PO; -HYDR12.55 PO; -IPRA0.2S9 NEB; -LACT1CAP72 PO; -METO25TA20 PO; -MULT-447 PO; -RIFA300C2 PO; -SIMV10TA98 PO
[2024-11-04] MEDS: IV NS 0.9% 500 ML BAG IV ONE (11:26)
[2024-11-04 11:41] LABS: BASOPHILS # (AUTO) 0.1 K/uL (0.0-0.2); BASOPHILS % (AUTO) 0.8 % (0.0-2.0); EOSINOPHILS # (AUTO) 0.3 K/uL (0.0-0.7); EOSINOPHILS % (AUTO) 4.2 % (0.0-6.0); HEMATOCRIT 23 % (39-51); HEMOGLOBIN 7.9 g/dL (13.5-17.5); LYMPHOCYTES % (AUTO) 12.4 % (20.0-44.0); MEAN CORPUSCULAR HEMOGLOBIN 30 PG (26.0-33.0); MEAN CORPUSCULAR HGB CONC 34 g/dl (31.0-36.0); MEAN CORPUSCULAR VOLUME 87 fL (80-96); MONOCYTES # (AUTO) 0.9 K/uL (0.1-1.30); NEUTROPHILS # (AUTO) 5.6 K/uL (1.8-8.9); NEUTROPHILS % (AUTO) 70.6 % (43.0-81.0); PLATELET COUNT (AUTO) 172 K/uL (150-450); RED BLOOD CELL COUNT(AUTO) 2.66 MIL/uL (4.5-6.0); RED CELL DISTRIBUTION WIDTH 16.1 % (11.5-15.0); WHITE BLOOD COUNT (AUTO) 7.9 K/uL (4.3-11.0)
[2024-11-04 11:51] LABS: CALCIUM, SERUM 7.7 mg/dL (8.5-10.1); CREATININE 4.1 mg/dL (0.6-1.3); POTASSIUM 4.1 mmol/L (3.5-5.1)
[2024-11-04] MEDS ORDERED: MECLIZINE HCL 25 MG TABLET ONE (12:16)
[2024-11-04] MEDS: MECLIZINE HCL 12.5 MG TABLET PO ONE (12:16)
[2024-11-04] MEDS ORDERED: MECL-159 PO (12:21)
[2024-11-04 13:29] VITALS: BP 160/83; TEMP 98.3; O2SAT 98
== END 2024-11-04 16:30 | disposition home or self-care (01) ==
LOC: ER 11:00
DX: I12.0 Hypertensive chronic kidney disease with stage 5 chronic kidney disease or end stage renal disease (principal); N18.6 End stage renal disease; E83.51 Hypocalcemia; D64.9 Anemia, unspecified; R53.1 Weakness; F17.200 Nicotine dependence, unspecified, uncomplicated; Z79.82 Long term (current) use of aspirin; Z99.2 Dependence on renal dialysis; Z86.79 Personal history of other diseases of the circulatory system; Z87.09 Personal history of other diseases of the respiratory system; Z87.39 Personal history of other diseases of the musculoskeletal system and connective tissue; Z60.2 Problems related to living alone
CPT/HCPCS: 99285; 71045; 93005; 85025; 80048; 36415; J8597; J7040